=== PATIENT | female | born 1960 | race African-American/Black ===

== ENCOUNTER 2021-11-12 10:51 | Observation (INO) ==
[2021-11-12 11:00] VITALS: BMI 37.8
--- NOTE | 2021-11-12 11:17 | DR.CP ---
HPI Time Seen Time Seen by Provider: 11/12/21 11:17 PCP Primary Care Physician: SEAN HPI Comment HPI Comment: PATIENT IS 61YR OLD FEMALE IN ER WITH THROAT PAIN SINCE THURSDAY AND CHEST PAIN SINCE YESTERDAY. DENIES FEVER, COUGH OR CONGESTION. NO NAUSEA, VOMITING, DIARRHEA OR DYSURIA. PAIN IN THE CHEST IS SHARP, 8/10 RADIATING TO BACK. HISTORY CHF, ARTHRITIS AND HTN. DENIES TRAUMA. Complaint Chief Complaint Doctor Comments: CHEST PAIN SINCE YESTER AND THROAT PAIN SINCE THURSDAY. Chief Complaint:: PT STATES SHE IS HAVING PAIN UP IN HER THROAT DOWN INTO HER MID CHEST. PATIENT STATES SHE THOUGHT MAYBE HER THROAT WAS STARTING TO HURT THURSDAY, BUT THE CHEST PAIN STARTED YESTERDAY INTERMITTENT WITH SHARP INTENSITY. TODAY PATIENT STATES THE PAIN IS CONATANT WITH A SOMETIMES SHARP PAIN COVID-19 Coronavirus risk:travel/contact w/high risk person: No Has patient experienced Coronavirus symptoms: No Reviewed Nurses Notes Review: Yes Source History Provided: Patient Mode of Arrival Mode of Arrival: Ambulatory Timing Onset of Chief Complaint: 11/10/21 Came on: Suddenly Duration Duration: Constant Duration: Hours Location Location of Chest Pain: Chest (SUBSTERNAL) Chest Pain Radiation Location: Back Context Onset: At rest Cardiac Risk Factors: HTN PE Risk Factors: None History of: None Prehospital Care: None Quality Quality: Burning Severity Severity: Moderate Modifying Factors Worsens: Exertion Impoves: Rest Associated Signs and Symptoms Associated Signs and Symptoms: Shortness of Breath Other History Other History: HTN, CHF. PULM HTN PMH PMH Past Medical History: Yes Past Medical History: Arthritis, CHF and Hypertension Past Medical History Comment: PULMONARY HYPERTENSION Past Surgical History: Yes Surgical History: Family History History of Family Medical Conditions: Yes Family Medical History: Hypertension Social History Does any household member use tobacco: No Alcohol Use: None Do you use any recreational Drugs:: No Lives With: Family Lives Where: Home Travel Risk Coronavirus risk:travel/contact w/high risk person: No Has patient experienced Coronavirus symptoms: No Infectious screening In the last 2 months have you had wt loss of >10#?: NO Have you had fever, night sweats or hemotysis?: No Have you traveled outside the country in the last 6 months?: No Isolation: Standard ROS Review of Systems Constitutional: See HPI, Weakness and Fatigue; negative Fever Eyes: No Symptoms Reported and See HPI; negative Blurred Vision and Diplopia ENTM: No Symptoms Reported and See HPI; negative Nose Discharge and Nose Congestion Respiratoy: See HPI and Short of Breath; negative Moist Cough and Wheezing Cardiovascular: See HPI and Chest Pain Gastrointestinal/Abdominal: No Symptoms Reported and See HPI; negative Abdominal Pain, Diarrhea, Nausea and Vomiting Genitourinary: No Symptoms Reported and See HPI; negative Dysuria Neurological: See HPI and Weakness; negative Headache and Dizziness Musculoskeletal: No Symptoms Reported and See HPI; negative Back Pain Integumentary: No Symptoms Reported and See HPI; negative Rash and Juandice Hematologic/Lymphatic: No Symptoms Reported and See HPI; negative Easy Bruising Endocrine: No Symptoms Reported and See HPI; negative Increased Thirst and Increased Urine Psychiatric: No Symptoms Reported and See HPI All Other Systems: Reviewed and Negative PE Vitals Vitals: Temperature 98.0 F Pulse Rate 59 Respiratory Rate 13 Blood Pressure [Left Arm] 129/81 Blood Pressure 91/55 O2 Sat by Pulse Oximetry 94 General Limitations: No Limitations General Appearance: Alert and In No Apparent Distress Head Head Exam: Normal Inspection, Atraumatic and Normocephalic Eyes Eye exam: Normal Appearance and PERRL; negative Scleral Icterus and Conjunctival Injection ENT ENT Exam: Normal Exam, Normal Oropharynx, Normal External Ear Exam and TM's Normal Bilaterally Chest Chest Inspection: Normal Inspection and Symmetric Chest Wall Rise; negative Tenderness Respiratory Respiratory Exam: Normal Lung Sounds Bilat; negative Accessory Muscle Use, Chest Wall Tenderness and Respiratory Distress Respiratory Exam: Bilateral: Rhonchi and Lower: Rhonchi Cardiovascular Cardiovascular Exam: Regular Rate, Normal Rhythm and Normal Heart Sounds; negative Systolic Murmur and Diastolic Murmur Pulse: Normal and Radial Edema: Normal and 1 Abdominal Exam Abdominal Exam: Normal Inspection, Normal Bowel Sounds and Soft; negative Tenderness Extremities Extremities Exam: Normal Inspection and Normal Capillary Refill Back Back Exam: Normal Inspection; negative (R) CVA Tenderness and (L) CVA Tenderness Neurologic Neurological Exam: Alert and Oriented X3; negative Motor Sensory Deficit Psychiatric Psychiatric Exam: Normal Affect and Normal Mood Skin Skin Exam: Warm, Dry, Intact and Normal Color MDM Additional Information Additional Information Obtained From: Old Records and Family Differential Diagnosis Differential Diagnosis: Angina, Chest Wall Pain, CHF, Costochondritis, Gastritis, Myocardial Infarction, Pericarditis, Pneumonia and Pneumothorax COURSE Treatment Treatment: SEE ORDERS NOTED WHILE IN ER. LABS, XRAY, CT REPORTS DISCUSSED WITH PATIENT AND HER WHILE SHE WAS IN ER. SHE WAS GIVEN ASA 81MG CHEWABLE TABS, 4TABS PO, MORPHIN 4MG IV, ZOFRAN 4MG IV AND NS 30CC/HR WHILE IN ER. SHE STILL CONTINUE HAVING PAIN. SHE WAS ADMITTED TO HOSPITAL FOR FURTHER MANAGEMENT. Consultation Consultation Comments: DISCUSSED PATIENT WITH DR. ESTRADA. HE ADMITTED PATIENT. Education/Counseling Education/Counseling: Patient Educated On: Diagnosis ROR Labs Reviewed Laboratory Results Reviewed?: Yes Result Diagrams: 11/14/21 05:13 11/14/21 05:13 Laboratory: WBC 6.7 X10^3/uL (3.6-10.0) 11/12/21 11:00 RBC 4.51 X10^6/uL (3.5-5.4) 11/12/21 11:00 Hgb 12.8 g/dL (12.0-16.0) 11/12/21 11:00 Hct 37.9 % (36.0-47.0) 11/12/21 11:00 MCV 84.1 fL (80.0-100.0) 11/12/21 11:00 MCH 28.4 pg (27.0-34.0) 11/12/21 11:00 MCHC 33.7 g/dL (33.0-35.0) 11/12/21 11:00 RDW 15.9 % (11.6-16.5) 11/12/21 11:00 Plt Count 292 X10^3/uL (150.0-450.0) 11/12/21 11:00 MPV 8.6 fL (7.4-11.0) 11/12/21 11:00 Neut % (Auto) 54.1 % (42.0-75.0) 11/12/21 11:00 Lymph % (Auto) 33.2 % (21.0-51.0) 11/12/21 11:00 [place] % (Auto) 8.3 % (0.0-13.0) 11/12/21 11:00 Eos % (Auto) 3.7 % (0.9-2.9) H 11/12/21 11:00 Baso % (Auto) 0.7 % (0.2-1.0) 11/12/21 11:00 Neut # (Auto) 3.6 x10^3/uL (2.2-4.8) 11/12/21 11:00 Lymph # (Auto) 2.2 X10^3/uL (1.3-2.9) 11/12/21 11:00 [place] # (Auto) 0.6 x10^3/uL (0.3-0.8) 11/12/21 11:00 Eos # (Auto) 0.2 x10^3/uL (0.0-0.2) 11/12/21 11:00 Baso # (Auto) 0.0 X10^3/uL (0.0-0.1) 11/12/21 11:00 Absolute Nucleated RBC 0.2 /100WBC 11/12/21 11:00 PT 13.0 SECONDS (11.8-14.3) 11/12/21 11:00 INR Target Range - 11/12/21 11:00 INR 1.03 (0.8-1.3) 11/12/21 11:00 APTT 29.7 SECONDS (22.9-36.5) 11/12/21 11:00 PTT Comment - 11/12/21 11:00 D-Dimer 0.71 ug/ml (0.0-0.57) H* 11/12/21 11:16 Sodium 143 mmol/L (136-145) 11/12/21 11:00 Corrected Sodium TNP 11/12/21 11:00 Potassium 3.8 mmol/L (3.5-5.1) 11/12/21 11:00 Chloride 108 mmol/L (98-107) H 11/12/21 11:00 Carbon Dioxide 27.4 mmol/L (21-32) 11/12/21 11:00 BUN 6 mg/dL (7-18) L 11/12/21 11:00 Creatinine 0.75 mg/dL (0.55-1.02) 11/12/21 11:00 Est GFR (MDRD) Af Amer > 60 (>60) 11/12/21 11:00 Est GFR (MDRD) Non-Af > 60 (>60) 11/12/21 11:00 Glucose 91 mg/dL (65-99) 11/12/21 11:00 Calcium 8.4 mg/dL (8.5-10.1) L 11/12/21 11:00 Corrected Calcium TNP 11/12/21 11:00 Magnesium 2.2 mg/dL (1.7-2.9) 11/12/21 11:00 Total Bilirubin 0.40 mg/dL (0.2-1.0) 11/12/21 11:00 AST 12 Units/L (15-37) L 11/12/21 11:00 ALT 15 Units/L (12-78) 11/12/21 11:00 Alkaline Phosphatase 115 Units/L (46-116) 11/12/21 11:00 Creatine Kinase 69 Units/L (26-192) 11/12/21 11:00 CK-MB (CK-2) < 1.0 ng/mL (0-4.0) 11/12/21 11:00 CK/CKMB % Calc 1.5 % (<4) 11/12/21 11:00 Troponin I High Sens 8.1 ng/L (4.0-60.0) 11/12/21 11:00 B-Natriuretic Peptide 22.1 pg/mL (0-79) 11/12/21 11:00 Total Protein 7.4 g/dL (6.4-8.2) 11/12/21 11:00 Albumin 3.4 g/dL (3.4-5.0) 11/12/21 11:00 Globulin 4.0 g/dL (2.5-4.5) 11/12/21 11:00 Albumin/Globulin Ratio 0.9 Ratio (1.1-2.1) L 11/12/21 11:00 SARS CoV-2 RNA Rapid HERON Negative (NEGATIVE) 11/12/21 16:06 XRAY XRAY Interpreted by: Radiologist (REPORTS NOTED.) and Self EKG Rate: 56 [place]: Normal Rhythm: SB Block: None Hypertrophy: None ST: Normal Opioid Opioid Risk Tool Age (Jose box if 16-45): No History of Preadolescent Sexual Abuse: No Total: 0 Total Score Risk Category: Low Risk Copyright: Ledesma LR predicting aberrant behaviors Diagnosis Discharge Problem: Chest pain, rule out acute myocardial infarction Instructions Instructions: Nonspecific Chest Pain Nonspecific Chest Pain, Adult, Mhoy-da-Twny Chest Wall Pain, [id number] Chest Wall Pain Forms: Excuse From Work or School Precautions for COVID19 [facility] Social Distancing
[2021-11-12 11:21] LABS: BASOPHILS % (AUTO) 0.7 % (0.2-1.0); EOSINOPHILS # (AUTO) 0.2 x10^3/uL (0.0-0.2); EOSINOPHILS % (AUTO) 3.7 % (0.9-2.9); HEMATOCRIT 37.9 % (36.0-47.0); HEMOGLOBIN 12.8 g/dL (12.0-16.0); LYMPHOCYTES # (AUTO) 2.2 X10^3/uL (1.3-2.9); LYMPHOCYTES % (AUTO) 33.2 % (21.0-51.0); MEAN CORPUSCULAR HEMOGLOBIN 28.4 pg (27.0-34.0); MEAN CORPUSCULAR HGB CONC 33.7 g/dL (33.0-35.0); MEAN CORPUSCULAR VOLUME 84.1 fL (80.0-100.0); MEAN PLATELET VOLUME 8.6 fL (7.4-11.0); MONOCYTES # (AUTO) 0.6 x10^3/uL (0.3-0.8); MONOCYTES % (AUTO) 8.3 % (0.0-13.0); NEUTROPHILS # (AUTO) 3.6 x10^3/uL (2.2-4.8); NEUTROPHILS % (AUTO) 54.1 % (42.0-75.0); RED BLOOD COUNT 4.51 X10^6/uL (3.5-5.4); RED CELL DISTRIBUTION WIDTH 15.9 % (11.6-16.5); WHITE BLOOD COUNT 6.7 X10^3/uL (3.6-10.0)
[2021-11-12] MEDS ORDERED: MORPHINE SULFATE INJ 4 MG IVP ONE (11:37)
[2021-11-12] MEDS ORDERED: ZOFRAN INJ 4 MG VIAL IVP ONE (11:37)
[2021-11-12] MEDS ORDERED: ASPIRIN 81 MG CHEWTAB PO ONE (11:37)
[2021-11-12 11:53] LABS: ALANINE AMINOTRANSFERASE 15 Units/L (12-78); ALBUMIN 3.4 g/dL (3.4-5.0); ALKALINE PHOSPHATASE 115 Units/L (46-116); ASPARTATE AMINO TRANSFERASE 12 Units/L (15-37); BLOOD UREA NITROGEN 6 mg/dL (7-18); CALCIUM 8.4 mg/dL (8.5-10.1); CARBON DIOXIDE 27.4 mmol/L (21-32); CHLORIDE 108 mmol/L (98-107); CKMB % 1.5 % (<4); CREATINE KINASE 69 Units/L (26-192); CREATINE KINASE MB < 1.0 ng/mL (0-4.0); CREATININE 0.75 mg/dL (0.55-1.02); MAGNESIUM 2.2 mg/dL (1.7-2.9); SODIUM 143 mmol/L (136-145); TOTAL PROTEIN 7.4 g/dL (6.4-8.2); eGFR NON BLACK RACES > 60 (>60)
[2021-11-12] MEDS ORDERED: ASPIRIN 81 MG CHEWTAB ONE (12:01)
[2021-11-12] MEDS ORDERED: MORPHINE SULFATE INJ 4 MG ONE ×2 (12:02→16:01)
[2021-11-12] MEDS ORDERED: ZOFRAN INJ 4 MG VIAL ONE (12:02)
--- NOTE | 2021-11-12 12:38 | RAD ---
HISTORYCHEST PAIN CHF, HTN, C-SECSTUDYCHEST, 1 VIEWCOMPARISONChest x-ray dated October 14, 2019.FINDINGSThe trachea is midline. The cardiac silhouette is unchanged. The lungs are clear without focal infiltrate, pneumothorax, or effusion. The bony thorax is unremarkable.IMPRESSIONNo acute cardiopulmonary findings .Electronically signed by: ESTEBAN PENA (Nov 12, 2021 12:36:48)
--- NOTE | 2021-11-12 15:39 | CT ---
HISTORYCHEST PAIN, ELEVATED DDIMERSTUDYCTA CHESTCOMPARISONTECHNIQUEMultiple axial images of the chest were obtained from the thoracic inlet to the upper abdomen after the administration of IV contrast. 3D reconstructions utilizing axial MIPS imaging was performed and reviewed. Dose reduction techniques including Automated Exposure Control (AEC) and adjustment of mA and kV were utilized.FINDINGSThere are reactive sized lymph nodes in the left axilla. Thyroid gland is normal. The heart size is normal. Main pulmonary trunk is of normal diameter. There is no filling defect in the pulmonary arteries to suggest pulmonary embolus. There is no pathologic adenopathy. There is some esophageal wall thickening suggesting reflux esophagitis. There is bronchial wall thickening. There is prominence of the interstitial markings; etiology is uncertain. Differential includes pulmonary edema atypical infection such as viral pneumonia. There is mild dependent basilar atelectasis. There is no pleural effusion. Upper abdominal structures are grossly unremarkable. S-shaped scoliosis in the thoracolumbar spine.IMPRESSION1. Negative for pulmonary embolus. 2. Abnormal interstitial prominence. Question interstitial lung disease, edema, or atypical or viral infection.Electronically signed by: Dread Christopher (Nov 12, 2021 15:37:51)
[2021-11-12] MEDS: MORPHINE SULFATE INJ 4 MG IVP ONE ×2 (17:10→18:00)
[2021-11-12] MEDS ORDERED: NS 1,000 ML IV 1,000 ML ONE (17:12)
[2021-11-12] MEDS: NS 1,000 ML IV 1,000 ML IV SCH (17:25)
[2021-11-12] MEDS ORDERED: AMBIEN PO PRN (23:09)
[2021-11-12 23:51] LABS: CKMB % 1.3 % (<4); CREATINE KINASE 75 Units/L (26-192); CREATINE KINASE MB < 1.0 ng/mL (0-4.0)
[2021-11-13 05:30] LABS: BASOPHILS % (AUTO) 0.3 % (0.2-1.0); EOSINOPHILS # (AUTO) 0.3 x10^3/uL (0.0-0.2); EOSINOPHILS % (AUTO) 4.3 % (0.9-2.9); HEMOGLOBIN 12.2 g/dL (12.0-16.0); LYMPHOCYTES # (AUTO) 2.1 X10^3/uL (1.3-2.9); LYMPHOCYTES % (AUTO) 28.1 % (21.0-51.0); MEAN CORPUSCULAR HEMOGLOBIN 28.2 pg (27.0-34.0); MEAN CORPUSCULAR VOLUME 82.9 fL (80.0-100.0); MEAN PLATELET VOLUME 8.9 fL (7.4-11.0); MONOCYTES # (AUTO) 0.7 x10^3/uL (0.3-0.8); MONOCYTES % (AUTO) 8.9 % (0.0-13.0); NEUTROPHILS # (AUTO) 4.4 x10^3/uL (2.2-4.8); NEUTROPHILS % (AUTO) 58.4 % (42.0-75.0); RED BLOOD COUNT 4.35 X10^6/uL (3.5-5.4); RED CELL DISTRIBUTION WIDTH 15.9 % (11.6-16.5); WHITE BLOOD COUNT 7.6 X10^3/uL (3.6-10.0)
[2021-11-13 06:02] LABS: ALANINE AMINOTRANSFERASE 14 Units/L (12-78); ALBUMIN 3.2 g/dL (3.4-5.0); ALKALINE PHOSPHATASE 116 Units/L (46-116); ASPARTATE AMINO TRANSFERASE 11 Units/L (15-37); BLOOD UREA NITROGEN 9 mg/dL (7-18); CARBON DIOXIDE 25.9 mmol/L (21-32); CHLORIDE 107 mmol/L (98-107); CKMB % 1.4 % (<4); COR CA(FOR HYPOALB) 8.6 mg/dL (8.5-10.1); CREATINE KINASE 72 Units/L (26-192); CREATINE KINASE MB < 1.0 ng/mL (0-4.0); CREATININE 0.76 mg/dL (0.55-1.02); MAGNESIUM 2.1 mg/dL (1.7-2.9); SODIUM 140 mmol/L (136-145); eGFR NON BLACK RACES > 60 (>60)
--- NOTE | 2021-11-13 10:04 | DR.H&P ---
H&P - History & Physical for Day of: H&P Date: 11/12/21 - Chief Complaint Chief Complaint: CHEST PAIN, THROAT PAIN, EPIGASTRIC PAIN, SHORTNESS OF BREATH - History of Present Illness History of Present Illness: IS A 61 YEAR OLD PATIENT OF OURS. SHE PRESENTED TO THE ER WITH COMPLAINTS OF SUBSTERNAL CHEST PAIN WITH RADIATION TO THE BACK. THERE IS ASSOCIATED PAIN TO THE THROAT, EPIGASTRIC AREA, AND SHORTNESS OF BREATH. SHE DESCRIBES THROAT PAIN BURNING. PATIENT REPORTED THAT SYMPTOMS STARTED ON DAY PRIOR. SHE DESCRIBES PAIN INTERMITTENT, SHARP AND RATED IT A 6/10 WHEN PAIN IS PRESENT. SHE HAS A PMH OF HTN, PULMONARY HTN, CHF. ON ARRIVAL, HER VITALS WERE 98.0-70-16-97%-115/60. LABS WERE OBTAINED. WBC 6.7, RBC 4.51, HGB 12.8, HCT 37.9, D-DIMER 0.71, SODIUM 143, POTASSIUM 3.8, CHLORIDE 108, BUN 6, CREATININE 0.75, GLUCOSE 91, CALCIUM 8.4, AST 12, ALT 15, ALK PHOS 115, CREATININE 69, BNP 22.1, TOTAL PROTEIN 7.4, ALBUMIN 3.4. CARDIAC ENZYMES WERE WITHIN NORMAL LIMITS. COVID-19 NEGATIVE. AN EKG WAS OBTAINED AND REVEALED: SINUS RHYTHM WITH HR 63. CHEST XRAY OBTAINED AND REVEALED: NO ACUTE CARDIOPULMONARY FINDINGS. A CHEST CTA WAS OBTAINED AND REVEALED: There are reactive sized lymph nodes in the left axilla. Thyroid gland is normal. The heart size is normal. Main pulmonary trunk is of normal diameter. There is no filling defect in the pulmonary arteries to suggest pulmonary embolus. There is no pathologic adenopa thy. There is some esophageal wall thickening suggesting reflux esophagitis. There is bronchial wall thickening. There is prominence of the interstitial markings; etiology is uncertain. Differential includes pulmonary edema atypical infection such as viral pneumonia. There is mild dependent basilar atelectasis. There is no pleural effusion. Upper abdominal structures are grossly unremarkable. S-shaped scoliosis in the thoracolumbar spine. IN THE ER, HE WAS GIVEN MORPHINE 4MG IV X 1, ZOFRAN 4MG IV X 1, ASPIRIN 324 MG PO X 1. SHE REPORTED SLIGHT IMPROVEMENT CHEST PAIN. SHE WAS ADMITTED TO THE HOSPTIAL FOR FURTHER EVALUATION AND TREATMENT OF CHEST PAIN RULE OUT ACUTE OK, ESOPHAGITIS, AND SHORTNESS OF BREATH. SHE WAS STARTED ON NORMAL SALINE AT KVO, ASPIRIN 325MG PO DAILY, PEPCID 20MG IV Q12H, PROTONIX 40MG IV BID, AND GI COCKTAIL 15ML PO QID. DESPITE HX OF HTN, HER BLOOD PRESSURE WAS RELATIVELY LOW WIHILE IN THE ER AND THROUGHOUT THE NIGHT. WE WILL REVIEW HER HOME MEDICATIONS AND RESUME APPROPRIATE. WHILE SHE IS HERE, WE WILL CONSULT FOR POSSIBLE ENDOSCOPY. WE WILL OBTAIN SERIAL CARDIAC ENZYMES AND EKGS. OTHERWISE, WE PLAN TO FOLLOW UP WITH AM LABS AND CONTINUE TO MONITOR. TIME SPENT ON CLINICAL ASSESSMENT, REVIEWING LABS AND IMAGING, DECISION MAKING, AND DOCUMENTATION GREATER THAN 75 MINUTES. - Past Medical History Past Medical History: Hypertension, Arthritis, CHF - Past Surgical History Surgical History: - Family History Family Medical History: Diabetes Mellitus, Cancer, [place], Coronary Artery Disease, Heart Failure, Hypertension - Social History Does patient currently use any type of tobacco product: No Have you used tobacco products in the last 12 months: No Type of Tobacco Use: None Does any household member use tobacco: No Alcohol Use: None Drug Use: None - Medications Home Medications: No Known Drug Allergies Allergy (Verified 10/14/19 13:31) CONTINUE taking the following medications furosemide 20 mg PO DAILY 11/12/21 [History] gabapentin 300 mg PO HS 11/12/21 [History] ibuprofen 800 mg PO TID 11/12/21 [History] levocetirizine 5 mg PO ONCE 11/12/21 [History] ondansetron 4 mg PO Q8H 11/12/21 [History] pantoprazole 40 mg PO DAILY 11/12/21 [History] riociguat [Adempas] 2.5 mg PO TID 11/12/21 [History] zolpidem 10 mg PO HS 11/12/21 [History] - Review of Systems Constitutional: See HPI Eyes: No Symptoms Reported ENT: Throat Pain Respiratory: Shortness of Breath. denies: Cough, Hemoptysis, Sputum Cardiovascular: Chest Pain, See HPI Gastrointestinal: Nausea, Abdominal Pain Genitourinary: No Symptoms Reported Musculoskeletal: No Symptoms Reported Skin: No Symptoms Reported Neurological: No Symptoms Reported - Physical Exam Vital Signs: Temperature 99.2 F Pulse Rate [Left Brachial] 60 Pulse Rate 59 Respiratory Rate 18 Blood Pressure [Left Arm] 102/50 Blood Pressure 91/55 O2 Sat by Pulse Oximetry 94 Oriented: Normal Eyes: Normal Ear: Normal Nose: Normal Throat: Normal Respiratory: Clear Throughout Cardiovascular: Normal : Normal Auscultation: Bowel Sounds: Normal Palpation: Normal Tenderness: Epigastric, Mild Skin: Normal Musculoskeletal: Normal Psychiatric: Normal Mood Description: Calm Affect: Normal Speech Pattern: Clear - Assessment/Plan (1) Chest pain, rule out acute myocardial infarction Status: Acute Plan: ADMIT, SERIAL CARDIAC ENZYMES AND EKG, CONSULT FOR POSSIBLE ENDOSCOPY, NORMAL SALINE AT KVO, ASPIRIN 325MG PO DAILY, PEPCID 20MG IV Q12H, PROTONIX 40MG IV BID, AND GI COCKTAIL 15ML PO QID. (2) Esophagitis Status: Acute (3) Shortness of breath Status: Acute - Allergies Allergies/Adverse Reactions: Allergies Allergy/AdvReac Type Severity Reaction Status Date / Time No Known Drug Allergies Allergy Verified 10/14/19 13:31
[2021-11-13] MEDS: PROTONIX INJ 40 MG VIAL IVP SCH ×2 (10:15→21:02)
[2021-11-13] MEDS: PEPCID 20 MG VIAL 20 MG in NS 50 ML IV 50 ML IV SCH ×2 (10:15→21:03)
[2021-11-13] MEDS: LEVSIN/MAALOX/LIDOC VISC PO SCH ×4 (12:08→21:01)
[2021-11-13] MEDS ORDERED: DIPRIVAN VIAL 20 ML ONE (13:21)
[2021-11-13] MEDS ORDERED: K-DUR TAB 20 MEQ PO PRN (13:33)
[2021-11-13] MEDS ORDERED: POTASSIUM CHLORIDE LIQ 20 MEQ UDC PO PRN (13:33)
[2021-11-13] MEDS ORDERED: MAGNESIUM SULFATE 1 GRAM/100 mL PREMIX 1 G/100 ML BAG IV PRN (13:33)
[2021-11-13] MEDS ORDERED: MICRO K EXTEN CAP 10 MEQ PO PRN (13:33)
[2021-11-13] MEDS ORDERED: POTASSIUM CHL 60 MEQ/NS 0.45% 500 ML IV PRN (13:33)
[2021-11-13] MEDS ORDERED: KLOR-CON PO PRN (13:33)
[2021-11-13] MEDS ORDERED: K-RIDER 10 MEQ/NS 100 ML 10 MEQ/100 ML BAG IV PRN (13:33)
[2021-11-13] MEDS ORDERED: POTASSIUM CHL 40 MEQ/NS 0.45% 500 ML IV PRN (13:33)
[2021-11-13 15:46] LABS: BILIRUBIN,URINE NEGATIVE (NEGATIVE); BLOOD/HEMOGLOBIN,URINE NEGATIVE (NEGATIVE); GLUCOSE, URINE NEGATIVE (NEGATIVE); KETONES,URINE NEGATIVE (NEGATIVE); LEUKOCYTE ESTERASE ,URINE NEGATIVE (NEGATIVE); NITRITES,URINE NEGATIVE (NEGATIVE); PROTEIN,URINE NEGATIVE (NEGATIVE); UROBILINOGEN,URINE NORMAL (NORMAL)
[2021-11-13 15:48] LABS: APPEARANCE,URINE CLEAR (CLEAR); COLOR,URINE PALE YELLOW (YELLOW)
[2021-11-13] MEDS: NS 1,000 ML IV 1,000 ML IV SCH ×2 (16:15→20:10)
[2021-11-13] MEDS: CARAFATE PO SCH ×2 (16:45→21:03)
[2021-11-14] MEDS: CARAFATE PO SCH (05:58)
[2021-11-14 06:21] LABS: BASOPHILS % (AUTO) 0.5 % (0.2-1.0); EOSINOPHILS # (AUTO) 0.3 x10^3/uL (0.0-0.2); EOSINOPHILS % (AUTO) 4.4 % (0.9-2.9); HEMATOCRIT 36.5 % (36.0-47.0); HEMOGLOBIN 12.3 g/dL (12.0-16.0); LYMPHOCYTES # (AUTO) 2.1 X10^3/uL (1.3-2.9); LYMPHOCYTES % (AUTO) 32.8 % (21.0-51.0); MEAN CORPUSCULAR HEMOGLOBIN 28.2 pg (27.0-34.0); MEAN CORPUSCULAR HGB CONC 33.7 g/dL (33.0-35.0); MEAN CORPUSCULAR VOLUME 83.6 fL (80.0-100.0); MEAN PLATELET VOLUME 9.4 fL (7.4-11.0); MONOCYTES # (AUTO) 0.6 x10^3/uL (0.3-0.8); MONOCYTES % (AUTO) 9.5 % (0.0-13.0); NEUTROPHILS # (AUTO) 3.4 x10^3/uL (2.2-4.8); NEUTROPHILS % (AUTO) 52.8 % (42.0-75.0); RED BLOOD COUNT 4.36 X10^6/uL (3.5-5.4); RED CELL DISTRIBUTION WIDTH 15.6 % (11.6-16.5); WHITE BLOOD COUNT 6.5 X10^3/uL (3.6-10.0)
[2021-11-14 06:25] LABS: ALANINE AMINOTRANSFERASE 15 Units/L (12-78); ALBUMIN 3.2 g/dL (3.4-5.0); ALKALINE PHOSPHATASE 114 Units/L (46-116); ASPARTATE AMINO TRANSFERASE 12 Units/L (15-37); BLOOD UREA NITROGEN 6 mg/dL (7-18); CALCIUM 8.2 mg/dL (8.5-10.1); CARBON DIOXIDE 26.9 mmol/L (21-32); CHLORIDE 108 mmol/L (98-107); COR CA(FOR HYPOALB) 8.8 mg/dL (8.5-10.1); CREATININE 0.64 mg/dL (0.55-1.02); SODIUM 142 mmol/L (136-145); eGFR NON BLACK RACES > 60 (>60)
[2021-11-14 08:54] VITALS: BP 104/58
[2021-11-14] MEDS: LEVSIN/MAALOX/LIDOC VISC PO SCH (10:04)
[2021-11-14] MEDS: PEPCID 20 MG VIAL 20 MG in NS 50 ML IV 50 ML IV SCH (10:05)
[2021-11-14] MEDS: PROTONIX INJ 40 MG VIAL IVP SCH (10:06)
[2021-11-14] MEDS: NS 1,000 ML IV 1,000 ML IV SCH (10:08)
== END 2021-11-14 11:30 | disposition home or self-care (01) ==
LOC: MED/SURG 10:51 → ER 10:51 → MED/SURG 17:10
PROVIDERS: ADMIT Internal Medicine; ATTEND Internal Medicine

== ENCOUNTER 2023-01-29 14:41 | Observation (INO) ==
[2023-01-29 16:56] VITALS: BMI 35.0
[2023-01-29 17:44] LABS: BASOPHILS # (AUTO) 0.1 X10^3/uL (0.0-0.1); EOSINOPHILS # (AUTO) 0.1 x10^3/uL (0.0-0.2); EOSINOPHILS % (AUTO) 1.8 % (0.9-2.9); HEMATOCRIT 39.1 % (36.0-47.0); HEMOGLOBIN 12.9 g/dL (12.0-16.0); LYMPHOCYTES # (AUTO) 2.8 X10^3/uL (1.3-2.9); MEAN CORPUSCULAR HEMOGLOBIN 27.7 pg (27.0-34.0); MEAN CORPUSCULAR HGB CONC 32.9 g/dL (33.0-35.0); MEAN CORPUSCULAR VOLUME 84.3 fL (80.0-100.0); MEAN PLATELET VOLUME 8.6 fL (7.4-11.0); MONOCYTES # (AUTO) 0.6 x10^3/uL (0.3-0.8); MONOCYTES % (AUTO) 7.6 % (0.0-13.0); NEUTROPHILS % (AUTO) 52.6 % (42.0-75.0); PLATELET COUNT 298 X10^3/uL (150.0-450.0); RED BLOOD COUNT 4.64 X10^6/uL (3.5-5.4); RED CELL DISTRIBUTION WIDTH 15.9 % (11.6-16.5); WHITE BLOOD COUNT 7.5 X10^3/uL (3.6-10.0)
--- NOTE | 2023-01-29 17:47 | EKG ---
Test Reason : SOB Blood Pressure : */* mmHG Vent. Rate : 70 BPM Atrial Rate : 70 BPM P-R Int : 174 ms QRS Dur : 82 ms QT Int : 418 ms P-R-T Axes : 7 -18 43 degrees QTc Int : 451 ms Normal sinus rhythm Normal ECG When compared with ECG of 22-SEP-2022 15:50, Criteria for Septal infarct are no longer present Confirmed by Artur Martinez ([id number]) on 01/30/2023 7:44:46 AM Referred By: Confirmed By: Artur Martinez
[2023-01-29 17:55] LABS: ALANINE AMINOTRANSFERASE 18 Units/L (12-78); ALBUMIN 3.7 g/dL (3.4-5.0); ALKALINE PHOSPHATASE 110 Units/L (46-116); ASPARTATE AMINO TRANSFERASE 12 Units/L (15-37); BLOOD UREA NITROGEN 11 mg/dL (7-18); CALCIUM 8.9 mg/dL (8.5-10.1); CARBON DIOXIDE 30.3 mmol/L (21-32); CHLORIDE 104 mmol/L (98-107); CREATINE KINASE 92 Units/L (26-192); CREATININE 0.85 mg/dL (0.55-1.02); GLUCOSE 102 mg/dL (65-99); POTASSIUM 3.7 mmol/L (3.5-5.1); SODIUM 143 mmol/L (136-145); TOTAL PROTEIN 7.7 g/dL (6.4-8.2); eGFR NON BLACK RACES > 60 (>60)
[2023-01-29] MEDS: NS 1,000 ML IV 1,000 ML IV SCH (18:12)
--- NOTE | 2023-01-29 20:25 | EKG ---
Test Reason : SOB Blood Pressure : */* mmHG Vent. Rate : 69 BPM Atrial Rate : 69 BPM P-R Int : 166 ms QRS Dur : 78 ms QT Int : 408 ms P-R-T Axes : 2 -10 28 degrees QTc Int : 437 ms Normal sinus rhythm Low voltage QRS Borderline ECG When compared with ECG of 29-JAN-2023 17:40, (Unconfirmed) No significant change was found Confirmed by Artur Martinez ([id number]) on 01/30/2023 7:44:13 AM Referred By: Confirmed By: Artur Martinez
[2023-01-29 20:40] LABS: BILIRUBIN,URINE NEGATIVE (NEGATIVE); BLOOD/HEMOGLOBIN,URINE NEGATIVE (NEGATIVE); GLUCOSE, URINE NEGATIVE (NEGATIVE); KETONES,URINE NEGATIVE (NEGATIVE); LEUKOCYTE ESTERASE ,URINE NEGATIVE (NEGATIVE); NITRITES,URINE NEGATIVE (NEGATIVE); PROTEIN,URINE NEGATIVE (NEGATIVE); UROBILINOGEN,URINE 1+ (NORMAL)
[2023-01-29 20:42] LABS: APPEARANCE,URINE CLEAR (CLEAR); COLOR,URINE YELLOW (YELLOW)
[2023-01-29 20:43] LABS: BACTERIA,URINE 1+ /HPF (NEGATIVE); RBC,URINE 0-2 /HPF (0-3); SQUAMOUS EPITHELIAL CELL,UR FEW /HPF (NEGATIVE)
[2023-01-29] MEDS: MORPHINE SULFATE INJ 2 MG INJ IVP PRN (20:55)
--- NOTE | 2023-01-30 01:10 | EKG ---
Test Reason : SOB Blood Pressure : */* mmHG Vent. Rate : 62 BPM Atrial Rate : 62 BPM P-R Int : 184 ms QRS Dur : 78 ms QT Int : 436 ms P-R-T Axes : 21 -5 34 degrees QTc Int : 442 ms Normal sinus rhythm Low voltage QRS Borderline ECG When compared with ECG of 29-JAN-2023 20:18, (Unconfirmed) No significant change was found Confirmed by Artur Martinez (4) on 01/30/2023 7:44:08 AM Referred By: Confirmed By: Artur Martinez
--- NOTE | 2023-01-30 01:21 | RAD ---
HISTORY"MY BLOOD PRESSURE HAS BEEN LOW. MY HEAD HAS BEEN HURTING AND I HAVE BEEN HAVING A LITTLE BIT OF CHEST PAIN."STUDYCHEST, 1 VIEWCOMPARISONJanuary 2022TECHNIQUEChest radiographic imaging, AP portable projection, 1 imageFINDINGSNo cardiomegaly.No focal airspace disease.No pleural effusion.No pneumothorax.No acute osseous abnormality.IMPRESSIONNo imaging findings of acute cardiopulmonary disease or significant changes.Electronically signed by: Bryson Majano (January 30, 2023 01:13:42)
[2023-01-30 06:03] LABS: BASOPHILS # (AUTO) 0.1 X10^3/uL (0.0-0.1); BASOPHILS % (AUTO) 0.8 % (0.2-1.0); EOSINOPHILS # (AUTO) 0.2 x10^3/uL (0.0-0.2); EOSINOPHILS % (AUTO) 2.9 % (0.9-2.9); HEMATOCRIT 35.6 % (36.0-47.0); LYMPHOCYTES # (AUTO) 3.1 X10^3/uL (1.3-2.9); LYMPHOCYTES % (AUTO) 44.4 % (21.0-51.0); MEAN CORPUSCULAR HEMOGLOBIN 28.5 pg (27.0-34.0); MEAN CORPUSCULAR HGB CONC 33.8 g/dL (33.0-35.0); MEAN CORPUSCULAR VOLUME 84.3 fL (80.0-100.0); MONOCYTES # (AUTO) 0.6 x10^3/uL (0.3-0.8); MONOCYTES % (AUTO) 8.2 % (0.0-13.0); NEUTROPHILS # (AUTO) 3.1 x10^3/uL (2.2-4.8); NEUTROPHILS % (AUTO) 43.7 % (42.0-75.0); PLATELET COUNT 265 X10^3/uL (150.0-450.0); RED BLOOD COUNT 4.23 X10^6/uL (3.5-5.4); RED CELL DISTRIBUTION WIDTH 15.8 % (11.6-16.5)
[2023-01-30] MEDS: NS 1,000 ML IV 1,000 ML IV SCH (06:07)
[2023-01-30 06:17] LABS: ALANINE AMINOTRANSFERASE 15 Units/L (12-78); ALBUMIN 3.3 g/dL (3.4-5.0); ALKALINE PHOSPHATASE 98 Units/L (46-116); ASPARTATE AMINO TRANSFERASE 11 Units/L (15-37); BLOOD UREA NITROGEN 11 mg/dL (7-18); CALCIUM 8.3 mg/dL (8.5-10.1); CARBON DIOXIDE 27.9 mmol/L (21-32); CHLORIDE 107 mmol/L (98-107); COR CA(FOR HYPOALB) 8.9 mg/dL (8.5-10.1); CREATININE 0.79 mg/dL (0.55-1.02); GLUCOSE 97 mg/dL (65-99); POTASSIUM 3.6 mmol/L (3.5-5.1); SODIUM 143 mmol/L (136-145); TOTAL PROTEIN 6.9 g/dL (6.4-8.2); eGFR NON BLACK RACES > 60 (>60)
[2023-01-30] MEDS: MORPHINE SULFATE INJ 2 MG INJ IVP PRN (09:26)
[2023-01-30 09:33] VITALS: BP 114/61; PULSE 63; TEMP 98.1; O2SAT 95
[2023-01-30] MEDS ORDERED: MOBIC TAB 15 MG PO PRN (09:59)
[2023-01-30] MEDS ORDERED: VITAMIN D3 125 mcg (5,000 UNITS) PO SCH (10:00)
[2023-01-30] MEDS ORDERED: ZYLOPRIM PO SCH (10:00)
[2023-01-30] MEDS ORDERED: PROTONIX TAB 40 MG PO SCH (10:00)
[2023-01-30] MEDS ORDERED: RIOCIGUAT 2.5 MG PO SCH (10:00)
[2023-01-30] MEDS ORDERED: SELEXIPAG 800 MCG PO SCH (10:00)
[2023-01-30] MEDS ORDERED: MACITENTAN 10 MG PO SCH (10:00)
[2023-01-30] MEDS ORDERED: K-DUR TAB 20 MEQ PO SCH (10:00)
[2023-01-30] MEDS ORDERED: CLARITIN PO SCH (10:00)
[2023-01-30] MEDS ORDERED: BENADRYL INJ 50 MG VIAL IVP ONE (11:39)
[2023-01-30] MEDS ORDERED: NEURONTIN CAP 300 MG PO SCH (21:00)
== END 2023-01-30 12:05 | disposition home or self-care (01) ==
LOC: MED/SURG
PROVIDERS: ADMIT Internal Medicine; ATTEND Internal Medicine
DX: Y92.238 Other place in hospital as the place of occurrence of the external cause; R06.02 Shortness of breath; T40.2X5A Adverse effect of other opioids, initial encounter; R07.89 Other chest pain; R51.9 Headache, unspecified

== ENCOUNTER 2023-02-06 10:38 | Observation (INO) ==
[2023-02-06 14:44] LABS: BASOPHILS % (AUTO) 0.5 % (0.2-1.0); EOSINOPHILS # (AUTO) 0.2 x10^3/uL (0.0-0.2); EOSINOPHILS % (AUTO) 2.2 % (0.9-2.9); HEMATOCRIT 39.5 % (36.0-47.0); HEMOGLOBIN 13.1 g/dL (12.0-16.0); LYMPHOCYTES # (AUTO) 2.8 X10^3/uL (1.3-2.9); LYMPHOCYTES % (AUTO) 37.1 % (21.0-51.0); MEAN CORPUSCULAR HEMOGLOBIN 28.1 pg (27.0-34.0); MEAN CORPUSCULAR HGB CONC 33.1 g/dL (33.0-35.0); MEAN CORPUSCULAR VOLUME 84.7 fL (80.0-100.0); MONOCYTES # (AUTO) 0.6 x10^3/uL (0.3-0.8); MONOCYTES % (AUTO) 7.6 % (0.0-13.0); NEUTROPHILS # (AUTO) 3.9 x10^3/uL (2.2-4.8); NEUTROPHILS % (AUTO) 52.6 % (42.0-75.0); PLATELET COUNT 281 X10^3/uL (150.0-450.0); RED BLOOD COUNT 4.66 X10^6/uL (3.5-5.4); RED CELL DISTRIBUTION WIDTH 15.7 % (11.6-16.5); WHITE BLOOD COUNT 7.4 X10^3/uL (3.6-10.0)
[2023-02-06 14:56] LABS: ALANINE AMINOTRANSFERASE 18 Units/L (12-78); ALBUMIN 3.7 g/dL (3.4-5.0); ALKALINE PHOSPHATASE 113 Units/L (46-116); ASPARTATE AMINO TRANSFERASE 15 Units/L (15-37); BLOOD UREA NITROGEN 9 mg/dL (7-18); CALCIUM 8.8 mg/dL (8.5-10.1); CARBON DIOXIDE 28.4 mmol/L (21-32); CHLORIDE 105 mmol/L (98-107); COR NA(FOR HYPERGLY) 143 mmol/L (136-145); CREATININE 0.79 mg/dL (0.55-1.02); GLUCOSE 135 mg/dL (65-99); POTASSIUM 3.8 mmol/L (3.5-5.1); SODIUM 142 mmol/L (136-145); TOTAL PROTEIN 7.8 g/dL (6.4-8.2); eGFR NON BLACK RACES > 60 (>60)
--- NOTE | 2023-02-06 15:02 | EKG ---
Test Reason : SOB Blood Pressure : */* mmHG Vent. Rate : 78 BPM Atrial Rate : 78 BPM P-R Int : 172 ms QRS Dur : 94 ms QT Int : 402 ms P-R-T Axes : -7 34 32 degrees QTc Int : 458 ms Normal sinus rhythm Septal infarct , age undetermined Abnormal ECG When compared with ECG of 30-JAN-2023 01:02, Questionable change in QRS duration Septal infarct is now present Confirmed by Artur Martinez (4) on 02/06/2023 4:35:48 PM Referred By: Confirmed By: Artur Martinez
[2023-02-06] MEDS: NS 1,000 ML IV 1,000 ML IV SCH (15:28)
[2023-02-06 15:30] LABS: BILIRUBIN,URINE NEGATIVE (NEGATIVE); BLOOD/HEMOGLOBIN,URINE 2+ (NEGATIVE); GLUCOSE, URINE NEGATIVE (NEGATIVE); KETONES,URINE 1+ (NEGATIVE); LEUKOCYTE ESTERASE ,URINE NEGATIVE (NEGATIVE); NITRITES,URINE NEGATIVE (NEGATIVE); PROTEIN,URINE 1+ (NEGATIVE); UROBILINOGEN,URINE 1+ (NORMAL)
[2023-02-06 15:35] LABS: APPEARANCE,URINE CLEAR (CLEAR); COLOR,URINE YELLOW (YELLOW)
[2023-02-06 15:43] LABS: BACTERIA,URINE TRACE /HPF (NEGATIVE); RBC,URINE 0-2 /HPF (0-3); SQUAMOUS EPITHELIAL CELL,UR RARE /HPF (NEGATIVE)
--- NOTE | 2023-02-06 17:37 | EKG ---
Test Reason : SOB Blood Pressure : */* mmHG Vent. Rate : 66 BPM Atrial Rate : 66 BPM P-R Int : 172 ms QRS Dur : 88 ms QT Int : 400 ms P-R-T Axes : -5 -8 64 degrees QTc Int : 419 ms Normal sinus rhythm Nonspecific T wave abnormality Abnormal ECG When compared with ECG of 06-FEB-2023 14:44, Criteria for Septal infarct are no longer present Confirmed by Artur Martinez (4) on 02/07/2023 8:39:14 AM Referred By: Confirmed By: Artur Martinez
[2023-02-06 17:40] LABS: AMYLASE 61 Units/L (25-115); LIPASE 186 Units/L (73-393)
[2023-02-06] MEDS: AMBIEN PO SCH (20:35)
[2023-02-06] MEDS: NORCO 5/325 MG TAB PO PRN (20:37)
[2023-02-06] MEDS: LASIX PO SCH (20:38)
[2023-02-06] MEDS: PROTONIX TAB 40 MG PO SCH (20:38)
[2023-02-06] MEDS: K-DUR TAB 20 MEQ PO SCH (20:38)
[2023-02-06] MEDS: SELEXIPAG 800 MCG PO SCH (20:40)
[2023-02-06] MEDS: NEURONTIN CAP 300 MG PO SCH (22:00)
[2023-02-06] MEDS: RIOCIGUAT 2.5 MG PO SCH (22:00)
--- NOTE | 2023-02-06 23:58 | EKG ---
Test Reason : SOB Blood Pressure : */* mmHG Vent. Rate : 73 BPM Atrial Rate : 73 BPM P-R Int : 166 ms QRS Dur : 86 ms QT Int : 384 ms P-R-T Axes : -11 -6 43 degrees QTc Int : 423 ms Normal sinus rhythm T wave abnormality, consider anterior ischemia Abnormal ECG When compared with ECG of 06-FEB-2023 17:22, (Unconfirmed) No significant change was found Confirmed by Artur Martinez (4) on 02/07/2023 8:39:10 AM Referred By: Confirmed By: Artur Martinez
[2023-02-07] MEDS: NS 1,000 ML IV 1,000 ML IV SCH (03:00)
[2023-02-07 05:38] LABS: BASOPHILS % (AUTO) 0.6 % (0.2-1.0); EOSINOPHILS # (AUTO) 0.3 x10^3/uL (0.0-0.2); EOSINOPHILS % (AUTO) 4.6 % (0.9-2.9); HEMATOCRIT 36.4 % (36.0-47.0); HEMOGLOBIN 12.4 g/dL (12.0-16.0); LYMPHOCYTES % (AUTO) 47.7 % (21.0-51.0); MEAN CORPUSCULAR HEMOGLOBIN 28.6 pg (27.0-34.0); MEAN CORPUSCULAR VOLUME 84.1 fL (80.0-100.0); MEAN PLATELET VOLUME 9.1 fL (7.4-11.0); MONOCYTES # (AUTO) 0.5 x10^3/uL (0.3-0.8); MONOCYTES % (AUTO) 8.5 % (0.0-13.0); NEUTROPHILS # (AUTO) 2.4 x10^3/uL (2.2-4.8); NEUTROPHILS % (AUTO) 38.6 % (42.0-75.0); PLATELET COUNT 263 X10^3/uL (150.0-450.0); RED BLOOD COUNT 4.33 X10^6/uL (3.5-5.4); RED CELL DISTRIBUTION WIDTH 15.9 % (11.6-16.5); WHITE BLOOD COUNT 6.3 X10^3/uL (3.6-10.0)
[2023-02-07] MEDS: NEURONTIN CAP 300 MG PO SCH ×3 (05:45→21:15)
[2023-02-07] MEDS: RIOCIGUAT 2.5 MG PO SCH ×3 (05:45→21:27)
[2023-02-07 05:55] LABS: ALANINE AMINOTRANSFERASE 18 Units/L (12-78); ALBUMIN 3.3 g/dL (3.4-5.0); ALKALINE PHOSPHATASE 94 Units/L (46-116); ASPARTATE AMINO TRANSFERASE 10 Units/L (15-37); BLOOD UREA NITROGEN 11 mg/dL (7-18); CALCIUM 8.4 mg/dL (8.5-10.1); CARBON DIOXIDE 27.7 mmol/L (21-32); CHLORIDE 107 mmol/L (98-107); CREATININE 0.74 mg/dL (0.55-1.02); GLUCOSE 101 mg/dL (65-99); POTASSIUM 3.7 mmol/L (3.5-5.1); SODIUM 142 mmol/L (136-145); TOTAL PROTEIN 6.9 g/dL (6.4-8.2); eGFR NON BLACK RACES > 60 (>60)
[2023-02-07] MEDS: K-DUR TAB 20 MEQ PO SCH ×2 (11:01→21:16)
[2023-02-07] MEDS: CLARITIN PO SCH (11:01)
[2023-02-07] MEDS: PROTONIX TAB 40 MG PO SCH ×2 (11:02→21:16)
[2023-02-07] MEDS: SELEXIPAG 800 MCG PO SCH ×2 (11:02→21:25)
[2023-02-07] MEDS: MACITENTAN 10 MG PO SCH (11:02)
[2023-02-07] MEDS: VITAMIN D3 125 mcg (5,000 UNITS) PO SCH (11:02)
[2023-02-07] MEDS: LASIX PO SCH ×2 (11:02→21:16)
[2023-02-07] MEDS: MOBIC TAB 15 MG PO SCH (11:02)
[2023-02-07] MEDS: ZYLOPRIM PO SCH (11:03)
[2023-02-07] MEDS ORDERED: ZOFRAN INJ 4 MG VIAL IVP PRN (11:33)
--- NOTE | 2023-02-07 11:45 | DR.H&P ---
H&P - History & Physical for Day of: H&P Date: 02/06/23 - Chief Complaint Chief Complaint: WEAKNESS, RLQ ABDOMINAL PAIN, SORE THROAT, HYPOTENSION - History of Present Illness History of Present Illness: IS A 62 YEAR OLD PATIENT OF OURS. SHE PRESENTED TO THE OFFICE ON 02/06/23 FOR A HOSPITAL FOLLOW-UP. SHE WAS HOSPITALIZED FROM 01/29/23 UNTIL 01/30/23 FOR TREATMENT OF CHEST PAIN RULE OUT ACUTE [place]. DURING HER HOSPITAL STAY, SERIAL CARDIAC ENZYMES AND EKGS WERE OBTAINED, WHICH ALL TURNED OUT TO BE WITHIN NORMAL LIMITS. SHE WAS DISCHARGED HOME AT THAT TIME WITH INSTRUCTIONS TO CONTINUE HER CURRENT MEDICATIONS. SHE WAS INSTRUCTED TO FOLLOW- UP WITH HER SOCIAL AND HUMAN SERVICES ASSISTANT, , BUT AN APPOINTMENT WITH HIM IS NOT AVAILABLE UNTIL April. DURING HER FOLLOW-UP VISIT, PATIENT COMPLAINED OF GENERALIZED WEAKNESS, RIGHT LOWER QUADRANT ABDOMINAL PAIN, SORE THROAT, AND DECREASED BLOOD PRESSURE. SHE ALSO REPORTS SEVERAL EPISODES OF NAUSEA AND REPORTS VOMITING A FEW TIMES. SHE DESCRIBES THE RLQ PAIN CRAMPING AND INTERMITTENT. SHE RATES PAIN A 8/10 UPON EXAMINATION. HER PMH INCLUDES: SEIZURE DISORDER, HTN, PULMONARY HYPERTENSION, GERD, PUD, KIDNEY STONES. DECISION WAS MADE TO READMIT PATIENT TO THE HOSPITAL FOR FURTHER EVALUATION AND TREATMENT. ON ARRIVAL TO THE HOSPTIAL, HER VITALS WERE: 98.1-79-18-98%-130/87. LABS WERE OBTAINED. WBC 7.4, RBC 4.66, HGB 13.1, HCT 39.5, PLT COUNT 281, SODIUM 142, POTASSIUM 3.8, CHLORIDE 105, CARBON DIOXIDE 28.4, BUN 9, CREATININE 0.79, GLUCOSE 135, CALCIUM 8.8, AST 15, ALT 18, ALK PHOS 113, TOTAL PROTEIN 7.8, ALBUMIN 3.7, TROPONIN 98, CREATININE 5.5, AMYLASE 61, LIPASE 186. A URINALYSIS WAS OBTAINED AND REVEALED: WBC 0-2, RBC 0-2, LEUKOCYTES NEGATIVE, BACTERIA TRACE, KETONES 1+, NITRITE NEGATIVE. A URINE CULTURE WAS SET UP. SHE WAS SWABBED FOR STREP, WHICH WAS NEGATIVE. A RESPIRATORY VIRAL PANEL WAS SET UP. EKG WAS OBTAINED AND REVEALED: NORMAL SINUS RHYTHM WITH HR 78 BPM. SHE WAS STARTED ON NORMAL SALINE AT 80 ML/HR, ZOFRAN 4MG IV Q4H PRN NAUSEA, NORCO 5/325MG PO Q6H PRN, AND HER HOME MEDICATIONS WERE RESUMED. HOME MEDICATIONS INCLUDE: POTASSIUM CHLORINDE, PANTOPRAZOLE, FUROSEMIDE, ALLOPURINOL, ZOLPIDEM, MELOXICAM, LORATADINE, GABAPENTIN, VITAMIN D3, UPTRAVI, ADEMPAS, AND OPSUMIT. WE PLAN TO OBTAIN AN ABDOMEN/PELVIS CT WITH CONTRAST. OTHERWISE, WE WILL FOLLOW-UP WITH AM LABS AND CONTINUE TO [facility]. TIME SPENT ON CLINICAL ASSESSMENT, REVIWING LABS AND IMAGING, DECISION MAKING, AND DOCUMENTATION GREATER THAN 75 MINUTES. - Past Medical History Past Medical History: Hypertension, GERD, Arthritis, CHF Additional Medical History: PULMONARY HYPERTENSION - Past Surgical History Surgical History: , Other - Family History Family Medical History: [place], Hypertension - Social History Does patient currently use any type of tobacco product: No Have you used tobacco products in the last 12 months: No Type of Tobacco Use: None Does any household member use tobacco: No Alcohol Use: None Drug Use: None - Medications Home Medications: Home Medications Medication Instructions Recorded Confirmed Type allopurinol 100 mg tablet 200 mg PO QDAY 10/28/22 01/29/23 History furosemide 40 mg tablet 40 mg PO BID 10/28/22 01/29/23 History loratadine 10 mg tablet 10 mg PO QDAY 10/28/22 01/29/23 History macitentan 10 mg tablet (Opsumit) 10 mg PO QDAY 10/28/22 01/29/23 History meloxicam 15 mg tablet 15 mg PO QDAY PRN 10/28/22 01/29/23 History potassium chloride 20 mEq 20 meq PO BID 10/28/22 01/29/23 History tablet,extended release riociguat 2.5 mg tablet (Adempas) 2.5 mg PO TID 10/28/22 01/29/23 History selexipag 800 mcg tablet (Uptravi) 800 mcg PO BID 10/28/22 01/29/23 History cholecalciferol (vitamin D3) 125 125 mcg PO DAILY 01/29/23 01/29/23 History mcg (5,000 unit) tablet (Vitamin D3) gabapentin 300 mg capsule 300 mg PO HS 01/29/23 01/29/23 History ibuprofen 800 mg tablet 800 mg PO .Q6-8H PRN 01/29/23 01/29/23 History pantoprazole 40 mg tablet,delayed 40 mg PO BID 01/29/23 01/29/23 History release (Protonix) allopurinol 100 mg tablet 2 tab PO QDAY 02/06/23 02/06/23 History cholecalciferol (vitamin D3) 125 1 cap PO QDAY 02/06/23 02/06/23 History mcg (5,000 unit) capsule furosemide 40 mg tablet 1 tab PO BID 02/06/23 02/06/23 History gabapentin 300 mg capsule 1 cap PO TID 02/06/23 02/06/23 History loratadine 10 mg tablet 1 tab PO QDAY 02/06/23 02/06/23 History macitentan 10 mg tablet (Opsumit) 1 tab PO QDAY 02/06/23 02/06/23 History meloxicam 15 mg tablet 1 tab PO QDAY 02/06/23 02/06/23 History pantoprazole 40 mg tablet,delayed 1 tab PO BID 02/06/23 02/06/23 History release potassium chloride 20 mEq 1 tab PO BID 02/06/23 02/06/23 History tablet,extended release riociguat 2.5 mg tablet (Adempas) 1 tab PO TID 02/06/23 02/06/23 History selexipag 800 mcg tablet (Uptravi) 1 tab PO BID 02/06/23 02/06/23 History zolpidem 10 mg tablet 1 tab PO QPM 02/06/23 02/06/23 History zolpidem 12.5 mg tablet,extended 1 tab PO QPM 02/06/23 02/06/23 History release,multiphase - Review of Systems Constitutional: Weakness Eyes: No Symptoms Reported ENT: No Symptoms Reported Respiratory: No Symptoms Reported Cardiovascular: No Symptoms Reported Gastrointestinal: Nausea, Vomiting, Abdominal Pain. denies: Diarrhea, Constipation, Melena Genitourinary: No Symptoms Reported Musculoskeletal: No Symptoms Reported Skin: No Symptoms Reported Neurological: Weakness - Physical Exam Vital Signs: Temperature 97.8 F Temperature 98.1 F Pulse Rate [Left Brachial] 68 Pulse Rate [Left Brachial] 79 Respiratory Rate 18 Respiratory Rate 18 Blood Pressure [Right Arm] 109/60 Blood Pressure [Left Arm] 130/87 Blood Pressure [Left Arm] 114/61 O2 Sat by Pulse Oximetry 97 O2 Sat by Pulse Oximetry 98 Oriented: Normal Eyes: Normal Ear: Normal Nose: Normal Throat: Normal Respiratory: Clear Throughout Cardiovascular: Normal : Normal Auscultation: Bowel Sounds: Normal Palpation: Normal Tenderness: RLQ, Moderate. negative: Rebound, Guarding, Rigidity Skin: Decreased Turgur Musculoskeletal: Normal Psychiatric: Normal Mood Description: Calm Affect: Normal Speech Pattern: Clear - Assessment/Plan (1) Abdominal pain Qualifiers: Abdominal location: right lower quadrant Qualified Code(s): R10.31 - Right lower quadrant pain Status: Acute Plan: ADMIT, OBTAIN ABDOMEN/PELVIS CT, NORMAL SALINE AT 80 ML/HR, ZOFRAN 4MG IV Q4H PRN NAUSEA, NORCO 5/325MG PO Q6H PRN, AND HER HOME MEDICATIONS WERE RESUMED. HOME MEDICATIONS INCLUDE: POTASSIUM CHLORIDE, PANTOPRAZOLE, FUROSEMIDE, ALLOPURINOL, ZOLPIDEM, MELOXICAM, LORATADINE, GABAPENTIN, VITAMIN D3, UPTRAVI, ADEMPAS, AND OPSUMIT. (2) Nausea and vomiting Qualifiers: Vomiting type: unspecified Qualified Code(s): R11.2 - Nausea with vomiting, unspecified Status: Acute (3) Generalized weakness Status: Acute (4) Pulmonary hypertension Status: Chronic (5) Gout Qualifiers: Gout site: multiple sites Status: Chronic (6) Insomnia Qualifiers: Insomnia type: primary Qualified Code(s): F51.01 - Primary insomnia Status: Chronic (7) Gastroesophageal reflux disease Qualifiers: Esophagitis presence: esophagitis presence not specified Qualified Code(s): K21.9 - Gastro-esophageal reflux disease without esophagitis Status: Chronic - Allergies Allergies/Adverse Reactions: Allergies Allergy/AdvReac Type Severity Reaction Status Date / Time morphine AdvReac Mild itching Verified 02/06/23 14:06
[2023-02-07] MEDS: NORCO 5/325 MG TAB PO PRN (16:51)
[2023-02-07] MEDS: AMBIEN PO SCH (21:15)
[2023-02-08] MEDS: NS 1,000 ML IV 1,000 ML IV SCH ×3 (04:50→19:00)
[2023-02-08 05:27] LABS: BASOPHILS # (AUTO) 0.1 X10^3/uL (0.0-0.1); EOSINOPHILS # (AUTO) 0.4 x10^3/uL (0.0-0.2); EOSINOPHILS % (AUTO) 5.3 % (0.9-2.9); HEMOGLOBIN 12.5 g/dL (12.0-16.0); LYMPHOCYTES # (AUTO) 2.6 X10^3/uL (1.3-2.9); LYMPHOCYTES % (AUTO) 33.3 % (21.0-51.0); MEAN CORPUSCULAR HEMOGLOBIN 28.3 pg (27.0-34.0); MEAN CORPUSCULAR HGB CONC 33.9 g/dL (33.0-35.0); MEAN CORPUSCULAR VOLUME 83.5 fL (80.0-100.0); MEAN PLATELET VOLUME 8.8 fL (7.4-11.0); MONOCYTES # (AUTO) 0.6 x10^3/uL (0.3-0.8); MONOCYTES % (AUTO) 8.2 % (0.0-13.0); NEUTROPHILS # (AUTO) 4.1 x10^3/uL (2.2-4.8); NEUTROPHILS % (AUTO) 52.2 % (42.0-75.0); PLATELET COUNT 282 X10^3/uL (150.0-450.0); RED BLOOD COUNT 4.43 X10^6/uL (3.5-5.4); RED CELL DISTRIBUTION WIDTH 15.9 % (11.6-16.5); WHITE BLOOD COUNT 7.8 X10^3/uL (3.6-10.0)
[2023-02-08] MEDS: NEURONTIN CAP 300 MG PO SCH ×3 (05:27→21:25)
[2023-02-08] MEDS: RIOCIGUAT 2.5 MG PO SCH ×3 (05:28→21:29)
[2023-02-08 05:50] LABS: ALANINE AMINOTRANSFERASE 19 Units/L (12-78); ALBUMIN 3.3 g/dL (3.4-5.0); ALKALINE PHOSPHATASE 102 Units/L (46-116); ASPARTATE AMINO TRANSFERASE 11 Units/L (15-37); BLOOD UREA NITROGEN 8 mg/dL (7-18); CALCIUM 8.2 mg/dL (8.5-10.1); CARBON DIOXIDE 27.8 mmol/L (21-32); CHLORIDE 106 mmol/L (98-107); COR CA(FOR HYPOALB) 8.8 mg/dL (8.5-10.1); CREATININE 0.73 mg/dL (0.55-1.02); GLUCOSE 109 mg/dL (65-99); POTASSIUM 3.4 mmol/L (3.5-5.1); SODIUM 143 mmol/L (136-145); eGFR NON BLACK RACES > 60 (>60)
--- NOTE | 2023-02-08 06:07 | RAD ---
HISTORYShortness of breath and weaknessSTUDYCHEST, 1 [id number]/25/2023FINDINGSThe trachea is midline. The cardiac silhouette is unremarkable . The lungs are clear without focal infiltrate or effusion. The bony thorax is unremarkable.IMPRESSIONNo acute cardiopulmonary disease.Electronically signed by: REINALDO PÉREZ (Feb 08, 2023 06:05:17)
--- NOTE | 2023-02-08 06:09 | RAD ---
HISTORYABD PAINSTUDYKUBCOMPARISONNoneFIND INGSEvaluation of the abdomen demonstrates a normal bowel gas pattern. No pathological soft tissue mass or calcification can be observed. The bony structures are grossly intact.IMPRESSIONNo evidence for acute abdominal pathology identified.Electronically signed by: REINALDO PÉREZ (Feb 08, 2023 06:08:05)
--- NOTE | 2023-02-08 06:17 | CT ---
HISTORYRight lower abdominal pain with nausea and vomiting.STUDYCT abdomen and pelvis without contrastCOMPARISONCT abdomen with contrast from 06/19/2020.TECHNIQUEMultiple axial images of the abdomen and pelvis were obtained from the lung bases to the pubic symphysis without the administration of IV contrast. Dose reduction techniques including Automated Exposure Control (AEC) and adjustment of mA and kV were utilized.FINDINGSLower chest: No significant abnormality.Liver: No significant abnormality.Biliary: The gallbladder is unremarkable. No biliary ductal dilatation.Pancreas:No significant abnormality.Spleen: No significant abnormality.Adrenals: No significant abnormality.Kidneys and ureters: No significant abnormality.Stomach and bowel: No significant abnormality. Normal appendix.Peritoneum: No free air, free fluid or fluid collection.Vasculature: No acute findings. There is mild atherosclerosis.Lymph nodes: No adenopathy.Bladder: No significant abnormality.Reproductive organs: No significant abnormality.Additional findings: [None.]Bones: There are mild degenerative changes along the spine without acute findings.IMPRESSION1. No acute findings explaining the patient's complaints.2. Additional findings as above.Electronically signed by: Colt Quintanilla (Feb 08, 2023 06:16:07)
[2023-02-08] MEDS: LASIX PO SCH ×2 (09:32→21:27)
[2023-02-08] MEDS: CLARITIN PO SCH (09:32)
[2023-02-08] MEDS: K-DUR TAB 20 MEQ PO SCH ×2 (09:32→21:27)
[2023-02-08] MEDS: VITAMIN D3 125 mcg (5,000 UNITS) PO SCH (09:32)
[2023-02-08] MEDS: MOBIC TAB 15 MG PO SCH (09:32)
[2023-02-08] MEDS: PROTONIX TAB 40 MG PO SCH ×2 (09:32→21:27)
[2023-02-08] MEDS: ZYLOPRIM PO SCH (09:32)
[2023-02-08] MEDS: MACITENTAN 10 MG PO SCH (09:33)
[2023-02-08] MEDS: SELEXIPAG 800 MCG PO SCH ×2 (09:34→21:28)
--- NOTE | 2023-02-08 11:23 | PCM.PROG ---
Progress Note - Progress Note for Day of Date of Exam: 02/08/23 - Subjective Subjective: IS CURRENTLY OBSERVATION STATUS FOR TREATMENT OF LEFT SIDED CHEST PAIN, RLQ ABDOMINAL PAIN, NAUSEA AND VOMITING, GENERALIZED WEAKNESS. SHE HAS A PMH OF PULMONARY HTN, GOUT, INSOMNIA, AND GERD. TODAY, SHE IS ALERT AND ORIENTED, LYING IN BED ON MORNING ROUNDS. SHE CONTINUES TO COMPLAIN OF PRESSURE LIKE PAIN TO THE LEFT SIDE CHEST, WEAKNESS, AND OCCASIONAL NAUSEA. SHE DENIES ABDOMINAL PAIN THIS MORNING. UPON EXAMINATION, HEART IS REGULAR IN RATE AND RHYTHM. BILATERAL LUNGS ARE NOTED WITH DIMINISHED LUNG SOUNDS THROUGHOUT. ABDOMEN IS ROUND, SOFT, AND NON-TENDER WITH NORMAL BOWEL SOUNDS NOTED IN ALL QUADRANTS. GOOD MOVEMENT NOTED TO UPPER AND LOWER EXTREMITIES WITH NO EDEMA NOTED. HER VITALS THIS MORNING ARE: 98.9-76-18-97%-111/63. LABS WERE OBTAINED. WBC 7.8, RBC 4.43, HGB 12.5, HCT 37.0, PLT COUNT 282, SODIUM 143, POTASSIUM 3.4, CHLORIDE 106, BUN 8, CREATININE 0.73, GLUCOSE 109, CALCIUM 8.2, AST 11, ALT 19, ALK PHOS 102, TOTAL PROTEIN 7.0, ALBUMIN 3.3. AIT VIRAL PANEL IS PENDING. A KUB WAS OBTAINED YESTERDAY AND REVEALED: NO EVIDENCE FOR ACUTE ABDOMINAL PATHOLOGY. AN ABDOMEN/PELVIS CT WITHOUT CONTRAST WAS OBTAINED WELL AND WAS NEGATIVE FOR ACUTE FINDINGS. SHE IS CURRENTLY RECEIVING NORMAL SALINE AT 80 ML/HR, ZOFRAN 4MG IV Q4H PRN NAUSEA, NORCO 5/325MG PO Q6H PRN, AND HER HOME MEDICATIONS WERE RESUMED. HOME MEDICATIONS INCLUDE: POTASSIUM CHLORINDE, PANTOPRAZOLE, FUROSEMIDE, ALLOPURINOL, ZOLPIDEM, MELOXICAM, LORATADINE, GABAPENTIN, VITAMIN D3, UPTRAVI, ADEMPAS, AND OPSUMIT. WE WILL CONTINUE WITH CURRENT PLAN OF CARE TODAY. OTHERWISE, WE WILL FOLLOW-UP WITH AM LABS AND CONTINUE TO MONITOR. TIME SPENT ON CLINICAL ASSESSMENT, REVIWING LABS AND IMAGING, DECISION MAKING, AND DOCUMENTATION GREATER THAN 45 MINUTES. - Past Medical Family Social History Past Med/Fam/Surg Hx: No changes since H&P Allergies: Allergies morphine Adverse Reaction (Mild, Verified 02/06/23 14:06) itching - Review of Systems ROS: No change since H&P - Vital Signs and I&O's Vital Signs: Temperature 98.9 F Temperature 98.1 F Pulse Rate [Left Brachial] 76 Pulse Rate [Left Brachial] 79 Respiratory Rate 18 Respiratory Rate 18 Blood Pressure [Right Arm] 111/63 Blood Pressure [Left Arm] 130/87 Blood Pressure [Left Arm] 114/61 O2 Sat by Pulse Oximetry 97 O2 Sat by Pulse Oximetry 98 Intake and Output: Intake & Output 02/05/23 02/06/23 02/07/23 02/08/23 11:59 11:59 11:59 11:59 Intake Total 3176 / 3176 1923 / 1923 Output Total 2200 / 2200 900 / 900 Balance 976 / 976 1023 / 1023 - Physical Exam Oriented: Normal Eyes: Normal Ear: Normal Nose: Normal Throat: Normal Respiratory: Generalized, Diminished Cardiovascular: Normal : Normal Auscultation: Bowel Sounds: Normal Palpation: Normal Tenderness: Normal. negative: Rebound, Guarding, Rigidity Skin: Decreased Turgur Musculoskeletal: Normal Psychiatric: Normal Mood Description: Calm Affect: Normal Speech Pattern: Clear - Laboratory and Diagnostics Result Diagrams: 02/08/23 05:00 02/08/23 05:00 Labs: 02/06/23 15:15 Urine,Clean Catch Urine Culture - Final Laboratory WBC 7.8 X10^3/uL (3.6-10.0) 02/08/23 05:00 RBC 4.43 X10^6/uL (3.5-5.4) 02/08/23 05:00 Hgb 12.5 g/dL (12.0-16.0) 02/08/23 05:00 Hct 37.0 % (36.0-47.0) 02/08/23 05:00 MCV 83.5 fL (80.0-100.0) 02/08/23 05:00 MCH 28.3 pg (27.0-34.0) 02/08/23 05:00 MCHC 33.9 g/dL (33.0-35.0) 02/08/23 05:00 RDW 15.9 % (11.6-16.5) 02/08/23 05:00 Plt Count 282 X10^3/uL (150.0-450.0) 02/08/23 05:00 MPV 8.8 fL (7.4-11.0) 02/08/23 05:00 Neut % (Auto) 52.2 % (42.0-75.0) 02/08/23 05:00 Lymph % (Auto) 33.3 % (21.0-51.0) 02/08/23 05:00 [place] % (Auto) 8.2 % (0.0-13.0) 02/08/23 05:00 Eos % (Auto) 5.3 % (0.9-2.9) H 02/08/23 05:00 Baso % (Auto) 1.0 % (0.2-1.0) 02/08/23 05:00 Neut # (Auto) 4.1 x10^3/uL (2.2-4.8) 02/08/23 05:00 Lymph # (Auto) 2.6 X10^3/uL (1.3-2.9) 02/08/23 05:00 [place] # (Auto) 0.6 x10^3/uL (0.3-0.8) 02/08/23 05:00 Eos # (Auto) 0.4 x10^3/uL (0.0-0.2) H 02/08/23 05:00 Baso # (Auto) 0.1 X10^3/uL (0.0-0.1) 02/08/23 05:00 Absolute Nucleated RBC 0.1 /100WBC 02/08/23 05:00 Sodium 143 mmol/L (136-145) 02/08/23 05:00 Corrected Sodium TNP 02/08/23 05:00 Potassium 3.4 mmol/L (3.5-5.1) L 02/08/23 05:00 Chloride 106 mmol/L (98-107) 02/08/23 05:00 Carbon Dioxide 27.8 mmol/L (21-32) 02/08/23 05:00 BUN 8 mg/dL (7-18) 02/08/23 05:00 Creatinine 0.73 mg/dL (0.55-1.02) 02/08/23 05:00 Est GFR (MDRD) Af Amer > 60 (>60) 02/08/23 05:00 Est GFR (MDRD) Non-Af > 60 (>60) 02/08/23 05:00 Glucose 109 mg/dL (65-99) H 02/08/23 05:00 Calcium 8.2 mg/dL (8.5-10.1) L 02/08/23 05:00 Corrected Calcium 8.8 mg/dL (8.5-10.1) 02/08/23 05:00 Total Bilirubin 0.30 mg/dL (0.2-1.0) 02/08/23 05:00 AST 11 Units/L (15-37) L 02/08/23 05:00 ALT 19 Units/L (12-78) 02/08/23 05:00 Alkaline Phosphatase 102 Units/L (46-116) 02/08/23 05:00 Creatine Kinase 69 Units/L (26-192) 02/06/23 21:46 Troponin I High Sens 5.6 ng/L (4.0-60.0) 02/06/23 21:46 B-Natriuretic Peptide 49.7 pg/mL (0-79) 02/08/23 05:00 Total Protein 7.0 g/dL (6.4-8.2) 02/08/23 05:00 Albumin 3.3 g/dL (3.4-5.0) L 02/08/23 05:00 Globulin 3.7 g/dL (2.5-4.5) 02/08/23 05:00 Albumin/Globulin Ratio 0.9 Ratio (1.1-2.1) L 02/08/23 05:00 Amylase 61 Units/L (25-115) 02/06/23 14:30 Lipase 186 Units/L (73-393) 02/06/23 14:30 Specimen Type Clean catch urine 02/06/23 15:15 Urine Color Yellow (YELLOW) 02/06/23 15:15 Urine Appearance Clear (CLEAR) 02/06/23 15:15 Urine pH 6.0 (5.0 - 8.0) 02/06/23 15:15 Ur Specific [place] 1.025 (1.000-1.030) 02/06/23 15:15 Urine Protein 1+ (NEGATIVE) 02/06/23 15:15 Urine Glucose (UA) Negative (NEGATIVE) 02/06/23 15:15 Urine Ketones 1+ (NEGATIVE) 02/06/23 15:15 Urine Blood 2+ (NEGATIVE) 02/06/23 15:15 Urine Nitrite Negative (NEGATIVE) 02/06/23 15:15 Urine Bilirubin Negative (NEGATIVE) 02/06/23 15:15 Urine Urobilinogen 1+ (NORMAL) 02/06/23 15:15 Ur Leukocyte Esterase Negative (NEGATIVE) 02/06/23 15:15 Urine RBC 0-2 /HPF (0-3) 02/06/23 15:15 Urine WBC 0-2 /HPF (0-5) 02/06/23 15:15 Ur Squamous Epith Cells Rare /HPF (NEGATIVE) 02/06/23 15:15 Urine Bacteria Trace /HPF (NEGATIVE) 02/06/23 15:15 Urine Mucus Few /HPF (NEGATIVE) 02/06/23 15:15 Ur Culture Indicated? Yes/culture set up 02/06/23 15:15 S. pyogenes (TEM-PCR) Not detected (NOT DETECT) 02/06/23 17:37 - Plan (1) Abdominal pain Status: Acute Qualifiers: Abdominal location: right lower quadrant Qualified Code(s): R10.31 - Right lower quadrant pain Plan: NORMAL SALINE AT 80 ML/HR, ZOFRAN 4MG IV Q4H PRN NAUSEA, NORCO 5/325MG PO Q6H PRN, AND HER HOME MEDICATIONS WERE RESUMED. HOME MEDICATIONS INCLUDE: POTASSIUM CHLORIDE, PANTOPRAZOLE, FUROSEMIDE, ALLOPURINOL, ZOLPIDEM, MELOXICAM, LORATADINE, GABAPENTIN, VITAMIN D3, UPTRAVI, ADEMPAS, AND OPSUMIT. (2) Chest pain Status: Acute Qualifiers: Chest pain type: unspecified Qualified Code(s): R07.9 - Chest pain, unspecified (3) Nausea and vomiting Status: Acute Qualifiers: Vomiting type: unspecified Qualified Code(s): R11.2 - Nausea with vomiting, unspecified (4) Generalized weakness Status: Acute (5) Pulmonary hypertension Status: Chronic (6) Gout Status: Chronic Qualifiers: Gout site: multiple sites (7) Insomnia Status: Chronic Qualifiers: Insomnia type: primary Qualified Code(s): F51.01 - Primary insomnia (8) Gastroesophageal reflux disease Status: Chronic Qualifiers: Esophagitis presence: esophagitis presence not specified Qualified Code(s): K21.9 - Gastro-esophageal reflux disease without esophagitis
[2023-02-08] MEDS: NORCO 5/325 MG TAB PO PRN ×2 (13:40→21:26)
[2023-02-08] MEDS ORDERED: NORVASC TAB 5 MG ONE (13:59)
[2023-02-08] MEDS ORDERED: COZAAR ONE (13:59)
[2023-02-08] MEDS ORDERED: COREG TAB 25 MG ONE (13:59)
[2023-02-08] MEDS: AMBIEN PO SCH (21:25)
[2023-02-09] MEDS: NEURONTIN CAP 300 MG PO SCH ×3 (05:15→21:00)
[2023-02-09] MEDS: RIOCIGUAT 2.5 MG PO SCH ×3 (05:15→21:00)
[2023-02-09 05:25] LABS: BASOPHILS # (AUTO) 0.1 X10^3/uL (0.0-0.1); BASOPHILS % (AUTO) 0.8 % (0.2-1.0); EOSINOPHILS # (AUTO) 0.3 x10^3/uL (0.0-0.2); EOSINOPHILS % (AUTO) 5.2 % (0.9-2.9); HEMATOCRIT 36.5 % (36.0-47.0); HEMOGLOBIN 12.3 g/dL (12.0-16.0); LYMPHOCYTES % (AUTO) 45.2 % (21.0-51.0); MEAN CORPUSCULAR HEMOGLOBIN 28.2 pg (27.0-34.0); MEAN CORPUSCULAR HGB CONC 33.6 g/dL (33.0-35.0); MEAN CORPUSCULAR VOLUME 84.1 fL (80.0-100.0); MEAN PLATELET VOLUME 8.9 fL (7.4-11.0); MONOCYTES # (AUTO) 0.6 x10^3/uL (0.3-0.8); MONOCYTES % (AUTO) 8.9 % (0.0-13.0); NEUTROPHILS # (AUTO) 2.7 x10^3/uL (2.2-4.8); NEUTROPHILS % (AUTO) 39.9 % (42.0-75.0); PLATELET COUNT 267 X10^3/uL (150.0-450.0); RED BLOOD COUNT 4.34 X10^6/uL (3.5-5.4); RED CELL DISTRIBUTION WIDTH 15.7 % (11.6-16.5); WHITE BLOOD COUNT 6.7 X10^3/uL (3.6-10.0)
[2023-02-09 05:41] LABS: ALANINE AMINOTRANSFERASE 17 Units/L (12-78); ALBUMIN 3.1 g/dL (3.4-5.0); ALKALINE PHOSPHATASE 94 Units/L (46-116); ASPARTATE AMINO TRANSFERASE 8 Units/L (15-37); BLOOD UREA NITROGEN 13 mg/dL (7-18); CALCIUM 8.1 mg/dL (8.5-10.1); CARBON DIOXIDE 28.5 mmol/L (21-32); CHLORIDE 108 mmol/L (98-107); COR CA(FOR HYPOALB) 8.8 mg/dL (8.5-10.1); CREATININE 0.84 mg/dL (0.55-1.02); GLUCOSE 106 mg/dL (65-99); POTASSIUM 3.6 mmol/L (3.5-5.1); SODIUM 143 mmol/L (136-145); TOTAL PROTEIN 6.7 g/dL (6.4-8.2); eGFR NON BLACK RACES > 60 (>60)
[2023-02-09] MEDS: LASIX PO SCH ×2 (08:43→20:43)
[2023-02-09] MEDS: K-DUR TAB 20 MEQ PO SCH ×2 (08:43→20:43)
[2023-02-09] MEDS: PROTONIX TAB 40 MG PO SCH ×2 (08:43→20:43)
[2023-02-09] MEDS: VITAMIN D3 125 mcg (5,000 UNITS) PO SCH (08:43)
[2023-02-09] MEDS: NS 1,000 ML IV 1,000 ML IV SCH ×2 (08:43→20:42)
[2023-02-09] MEDS: CLARITIN PO SCH (08:48)
[2023-02-09] MEDS: MOBIC TAB 15 MG PO SCH (08:48)
[2023-02-09] MEDS: ZYLOPRIM PO SCH (08:48)
[2023-02-09] MEDS: MACITENTAN 10 MG PO SCH (08:49)
[2023-02-09] MEDS: SELEXIPAG 800 MCG PO SCH ×2 (08:50→20:44)
[2023-02-09] MEDS ORDERED: FIORICET TAB PO PRN (10:16)
--- NOTE | 2023-02-09 20:18 | PCM.PROG ---
Progress Note - Progress Note for Day of Date of Exam: 02/09/23 - Subjective Subjective: IS CURRENTLY OBSERVATION STATUS FOR TREATMENT OF LEFT SIDED CHEST PAIN, RLQ ABDOMINAL PAIN, NAUSEA AND VOMITING, GENERALIZED WEAKNESS. SHE HAS A PMH OF PULMONARY HTN, GOUT, INSOMNIA, AND GERD. TODAY, SHE IS ALERT AND ORIENTED, LYING IN BED ON MORNING ROUNDS. SHE CONTINUES TO COMPLAIN OF PRESSURE LIKE PAIN TO THE LEFT SIDE CHEST, WEAKNESS, AND OCCASIONAL NAUSEA. SHE COMPLAINS OF PERSISTENT RIGHT SIDED ABDOMINAL PAIN THIS MORNING. SHE ALSO COMPLAINS OF AN INTERMITTENT HEADACHE. UPON EXAMINATION, HEART IS REGULAR IN RATE AND RHYTHM. BILATERAL LUNGS ARE NOTED WITH DIMINISHED LUNG SOUNDS THROUGHOUT. ABDOMEN IS ROUND, SOFT, AND NOTED WITH RLQ TENDERNESS TO PALPATION. NORMAL BOWEL SOUNDS NOTED IN ALL QUADRANTS. GOOD MOVEMENT NOTED TO UPPER AND LOWER EXTREMITIES WITH NO EDEMA NOTED. HER VITALS THIS MORNING ARE: 98.1-65-20-97%-86/47. LABS WERE OBTAINED. WBC 6.7, RBC 4.34, HGB 12.3, HCT 36.5, PLT COUNT 267, SODIUM 143, POTASSIUM 3.6, CHLORIDE 108, BUN 13, CREATININE 0.84, GLUCOSE 106, CALCIUM 8.1, TOTAL BILI 0.20, AST 8, ALT 17, ALK PHOS 94, TOTAL PROTEIN 6.7, ALBUMIN 3.1. AIT VIRAL PANEL IS PENDING. SHE IS CURRENTLY RECEIVING NORMAL SALINE AT 80 ML/HR, ZOFRAN 4MG IV Q4H PRN NAUSEA, NORCO 5/325MG PO Q6H PRN, AND HER HOME MEDICATIONS WERE RESUMED. HOME MEDICATIONS INCLUDE: POTASSIUM CHLORINDE, PANTOPRAZOLE, FUROSEMIDE, ALLOPURINOL, ZOLPIDEM, MELOXICAM, LORATADINE, GABAPENTIN, VITAMIN D3, UPTRAVI, ADEMPAS, AND OPSUMIT. WE WILL REPEAT AN ABDOMEN/PELVIS CT WITH CONTRAST TODAY. WE WILL ADD FIORICET 2 TABS Q8H PRN. OTHERWISE, WE WILL CONTINUE WITH CURRENT PLAN OF CARE TODAY. WE WILL FOLLOW-UP WITH AM LABS AND CONTINUE TO MONITOR. TIME SPENT ON CLINICAL ASSESSMENT, REVIWING LABS AND IMAGING, DECISION MAKING, AND DOCUMENTATION GREATER THAN 45 MINUTES. - Past Medical Family Social History Past Med/Fam/Surg Hx: No changes since H&P Allergies: Allergies morphine Adverse Reaction (Mild, Verified 02/06/23 14:06) itching - Review of Systems ROS: No change since H&P - Vital Signs and I&O's Vital Signs: Temperature 97.7 F Temperature 98.1 F Pulse Rate [Left Brachial] 71 Pulse Rate [Left Brachial] 79 Respiratory Rate 20 Respiratory Rate 18 Blood Pressure [Right Arm] 110/56 Blood Pressure [Left Arm] 103/58 Blood Pressure [Left Arm] 114/61 O2 Sat by Pulse Oximetry 98 O2 Sat by Pulse Oximetry 98 Intake and Output: Intake & Output 02/07/23 02/08/23 02/09/23 02/10/23 11:59 11:59 11:59 11:59 Intake Total 3176 / 3176 1923 / 1923 2941 / 2941 1120 / 1120 Output Total 2200 / 2200 900 / 900 Balance 976 / 976 1023 / 1023 2941 / 2941 1120 / 1120 - Physical Exam Oriented: Normal Eyes: Normal Ear: Normal Nose: Normal Throat: Normal Respiratory: Generalized, Diminished Cardiovascular: Normal : Normal Auscultation: Bowel Sounds: Normal Palpation: Normal Tenderness: RLQ, Mild. negative: Rebound, Guarding, Rigidity Skin: Decreased Turgur Musculoskeletal: Normal Psychiatric: Normal Mood Description: Calm Affect: Normal Speech Pattern: Clear - Laboratory and Diagnostics Result Diagrams: 02/09/23 04:53 02/09/23 04:53 Labs: 02/06/23 15:15 Urine,Clean Catch Urine Culture - Final Laboratory WBC 6.7 X10^3/uL (3.6-10.0) 02/09/23 04:53 RBC 4.34 X10^6/uL (3.5-5.4) 02/09/23 04:53 Hgb 12.3 g/dL (12.0-16.0) 02/09/23 04:53 Hct 36.5 % (36.0-47.0) 02/09/23 04:53 MCV 84.1 fL (80.0-100.0) 02/09/23 04:53 MCH 28.2 pg (27.0-34.0) 02/09/23 04:53 MCHC 33.6 g/dL (33.0-35.0) 02/09/23 04:53 RDW 15.7 % (11.6-16.5) 02/09/23 04:53 Plt Count 267 X10^3/uL (150.0-450.0) 02/09/23 04:53 MPV 8.9 fL (7.4-11.0) 02/09/23 04:53 Neut % (Auto) 39.9 % (42.0-75.0) L 02/09/23 04:53 Lymph % (Auto) 45.2 % (21.0-51.0) 02/09/23 04:53 [place] % (Auto) 8.9 % (0.0-13.0) 02/09/23 04:53 Eos % (Auto) 5.2 % (0.9-2.9) H 02/09/23 04:53 Baso % (Auto) 0.8 % (0.2-1.0) 02/09/23 04:53 Neut # (Auto) 2.7 x10^3/uL (2.2-4.8) 02/09/23 04:53 Lymph # (Auto) 3.0 X10^3/uL (1.3-2.9) H 02/09/23 04:53 [place] # (Auto) 0.6 x10^3/uL (0.3-0.8) 02/09/23 04:53 Eos # (Auto) 0.3 x10^3/uL (0.0-0.2) H 02/09/23 04:53 Baso # (Auto) 0.1 X10^3/uL (0.0-0.1) 02/09/23 04:53 Absolute Nucleated RBC 0.0 /100WBC 02/09/23 04:53 Sodium 143 mmol/L (136-145) 02/09/23 04:53 Corrected Sodium TNP 02/09/23 04:53 Potassium 3.6 mmol/L (3.5-5.1) 02/09/23 04:53 Chloride 108 mmol/L (98-107) H 02/09/23 04:53 Carbon Dioxide 28.5 mmol/L (21-32) 02/09/23 04:53 BUN 13 mg/dL (7-18) 02/09/23 04:53 Creatinine 0.84 mg/dL (0.55-1.02) 02/09/23 04:53 Est GFR (MDRD) Af Amer > 60 (>60) 02/09/23 04:53 Est GFR (MDRD) Non-Af > 60 (>60) 02/09/23 04:53 Glucose 106 mg/dL (65-99) H 02/09/23 04:53 Calcium 8.1 mg/dL (8.5-10.1) L 02/09/23 04:53 Corrected Calcium 8.8 mg/dL (8.5-10.1) 02/09/23 04:53 Total Bilirubin 0.20 mg/dL (0.2-1.0) 02/09/23 04:53 AST 8 Units/L (15-37) L 02/09/23 04:53 ALT 17 Units/L (12-78) 02/09/23 04:53 Alkaline Phosphatase 94 Units/L (46-116) 02/09/23 04:53 Creatine Kinase 69 Units/L (26-192) 02/06/23 21:46 Troponin I High Sens 5.6 ng/L (4.0-60.0) 02/06/23 21:46 B-Natriuretic Peptide 49.7 pg/mL (0-79) 02/08/23 05:00 Total Protein 6.7 g/dL (6.4-8.2) 02/09/23 04:53 Albumin 3.1 g/dL (3.4-5.0) L 02/09/23 04:53 Globulin 3.6 g/dL (2.5-4.5) 02/09/23 04:53 Albumin/Globulin Ratio 0.9 Ratio (1.1-2.1) L 02/09/23 04:53 Amylase 61 Units/L (25-115) 02/06/23 14:30 Lipase 186 Units/L (73-393) 02/06/23 14:30 Specimen Type Clean catch urine 02/06/23 15:15 Urine Color Yellow (YELLOW) 02/06/23 15:15 Urine Appearance Clear (CLEAR) 02/06/23 15:15 Urine pH 6.0 (5.0 - 8.0) 02/06/23 15:15 Ur Specific [place] 1.025 (1.000-1.030) 02/06/23 15:15 Urine Protein 1+ (NEGATIVE) 02/06/23 15:15 Urine Glucose (UA) Negative (NEGATIVE) 02/06/23 15:15 Urine Ketones 1+ (NEGATIVE) 02/06/23 15:15 Urine Blood 2+ (NEGATIVE) 02/06/23 15:15 Urine Nitrite Negative (NEGATIVE) 02/06/23 15:15 Urine Bilirubin Negative (NEGATIVE) 02/06/23 15:15 Urine Urobilinogen 1+ (NORMAL) 02/06/23 15:15 Ur Leukocyte Esterase Negative (NEGATIVE) 02/06/23 15:15 Urine RBC 0-2 /HPF (0-3) 02/06/23 15:15 Urine WBC 0-2 /HPF (0-5) 02/06/23 15:15 Ur Squamous Epith Cells Rare /HPF (NEGATIVE) 02/06/23 15:15 Urine Bacteria Trace /HPF (NEGATIVE) 02/06/23 15:15 Urine Mucus Few /HPF (NEGATIVE) 02/06/23 15:15 Ur Culture Indicated? Yes/culture set up 02/06/23 15:15 Resp Viral Panel (PCR) See scanned report 02/07/23 05:30 S. pyogenes (TEM-PCR) Not detected (NOT DETECT) 02/06/23 17:37 - Plan (1) Abdominal pain Status: Acute Qualifiers: Abdominal location: right lower quadrant Qualified Code(s): R10.31 - Right lower quadrant pain Plan: NORMAL SALINE AT 80 ML/HR, ZOFRAN 4MG IV Q4H PRN NAUSEA, NORCO 5/325MG PO Q6H PRN, AND HER HOME MEDICATIONS WERE RESUMED. HOME MEDICATIONS INCLUDE: POTASSIUM CHLORIDE, PANTOPRAZOLE, FUROSEMIDE, ALLOPURINOL, ZOLPIDEM, MELOXICAM, LORATADINE, GABAPENTIN, VITAMIN D3, UPTRAVI, ADEMPAS, AND OPSUMIT. OBTAIN ABDOMEN/PELVIS CT WITH CONTRAST. (2) Chest pain Status: Acute Qualifiers: Chest pain type: unspecified Qualified Code(s): R07.9 - Chest pain, unspecified (3) Nausea and vomiting Status: Acute Qualifiers: Vomiting type: unspecified Qualified Code(s): R11.2 - Nausea with vomiting, unspecified (4) Generalized weakness Status: Acute (5) Pulmonary hypertension Status: Chronic (6) Gout Status: Chronic Qualifiers: Gout site: multiple sites (7) Insomnia Status: Chronic Qualifiers: Insomnia type: primary Qualified Code(s): F51.01 - Primary insomnia (8) Gastroesophageal reflux disease Status: Chronic Qualifiers: Esophagitis presence: esophagitis presence not specified Qualified Code(s): K21.9 - Gastro-esophageal reflux disease without esophagitis
[2023-02-09] MEDS: AMBIEN PO SCH (20:43)
[2023-02-09] MEDS ORDERED: MILK OF MAGNESIA PO PRN (22:35)
[2023-02-09] MEDS ORDERED: COLACE CAP 100 MG PO SCH (23:00)
[2023-02-10] MEDS: NEURONTIN CAP 300 MG PO SCH (05:02)
[2023-02-10] MEDS: RIOCIGUAT 2.5 MG PO SCH (05:02)
[2023-02-10 06:42] LABS: BASOPHILS % (AUTO) 0.5 % (0.2-1.0); EOSINOPHILS # (AUTO) 0.3 x10^3/uL (0.0-0.2); EOSINOPHILS % (AUTO) 5.3 % (0.9-2.9); HEMATOCRIT 36.1 % (36.0-47.0); LYMPHOCYTES # (AUTO) 2.2 X10^3/uL (1.3-2.9); MEAN CORPUSCULAR HGB CONC 33.3 g/dL (33.0-35.0); MEAN CORPUSCULAR VOLUME 84.2 fL (80.0-100.0); MEAN PLATELET VOLUME 9.6 fL (7.4-11.0); MONOCYTES # (AUTO) 0.5 x10^3/uL (0.3-0.8); MONOCYTES % (AUTO) 8.5 % (0.0-13.0); NEUTROPHILS # (AUTO) 3.2 x10^3/uL (2.2-4.8); NEUTROPHILS % (AUTO) 50.7 % (42.0-75.0); PLATELET COUNT 245 X10^3/uL (150.0-450.0); RED BLOOD COUNT 4.29 X10^6/uL (3.5-5.4); RED CELL DISTRIBUTION WIDTH 15.8 % (11.6-16.5); WHITE BLOOD COUNT 6.2 X10^3/uL (3.6-10.0)
[2023-02-10 06:49] LABS: ALANINE AMINOTRANSFERASE 15 Units/L (12-78); ALKALINE PHOSPHATASE 93 Units/L (46-116); ASPARTATE AMINO TRANSFERASE 8 Units/L (15-37); BLOOD UREA NITROGEN 9 mg/dL (7-18); CALCIUM 8.2 mg/dL (8.5-10.1); CARBON DIOXIDE 28.5 mmol/L (21-32); CHLORIDE 107 mmol/L (98-107); CREATININE 0.71 mg/dL (0.55-1.02); GLUCOSE 106 mg/dL (65-99); POTASSIUM 3.3 mmol/L (3.5-5.1); SODIUM 143 mmol/L (136-145); TOTAL PROTEIN 6.5 g/dL (6.4-8.2); eGFR NON BLACK RACES > 60 (>60)
[2023-02-10] MEDS: MOBIC TAB 15 MG PO SCH (10:00)
[2023-02-10] MEDS: VITAMIN D3 125 mcg (5,000 UNITS) PO SCH (10:00)
[2023-02-10] MEDS: CLARITIN PO SCH (10:01)
[2023-02-10] MEDS: LASIX PO SCH (10:01)
--- NOTE | 2023-02-10 10:01 | CT ---
HISTORYRIGHT SIDE ABDOMINAL PAIN. History of congestive heart failure and hypertension.STUDYABDOMEN/PELVIS WITH CONCOMPARISONCT abdomen and pelvis 02/07/2023TECHNIQUEMultiple CT axial images of the abdomen and pelvis were obtained with IV contrast. Coronal and sagittal images were reconstructed. Dose reduction techniques included Automated Exposure Control (AEC) and adjustment of mA and kV.FINDINGSThe lung bases are clear. Heart size is normal.The liver is large measuring over 20 cm right midclavicular line. It otherwise has normal enhancement. The gallbladder has no inflammation around it. The spleen is normal in size and shape.The adrenal glands are normal. The pancreas is normal.Renal enhancement is symmetric with no solid mass. There is no hydronephrosis or significant perirenal edema. The bladder is normally distended. It has no wall thickening or perivesical edema.The bowel is not dilated. There is no wall thickening in the bowel or edema around the bowel. The appendix is normal in size with no inflammation around it. No evidence of appendicitis.Moderate sigmoid-shaped scoliosis is present. This is stable. Tiny umbilical hernia contains fat, unchanged from prior study.Small retroperitoneal lymph nodes are probably reactive; these are unchanged from a study dated 06/19/2020.IMPRESSION1. Hepatomegaly2. Stable retroperitoneal lymphadenopathy, probably reactiveElectronically signed by: Dimas Asencio (Feb 10, 2023 09:59:59)
[2023-02-10] MEDS: ZYLOPRIM PO SCH (10:02)
[2023-02-10] MEDS: PROTONIX TAB 40 MG PO SCH (10:02)
[2023-02-10] MEDS: MACITENTAN 10 MG PO SCH ×2 (10:02→13:34)
[2023-02-10] MEDS: SELEXIPAG 800 MCG PO SCH (10:02)
[2023-02-10] MEDS: NS 1,000 ML IV 1,000 ML IV SCH (10:03)
[2023-02-10 13:34] VITALS: BP 114/58; PULSE 81; TEMP 98.7; O2SAT 93
[2023-02-10] MEDS ORDERED: K-DUR TAB 20 MEQ PO SCH (14:00)
== END 2023-02-10 13:20 | disposition home or self-care (01) ==
LOC: MED/SURG
PROVIDERS: ADMIT Internal Medicine; ATTEND Internal Medicine
DX: K21.9 Gastro-esophageal reflux disease without esophagitis; R16.0 Hepatomegaly, not elsewhere classified; I10 Essential (primary) hypertension; J02.9 Acute pharyngitis, unspecified; R53.1 Weakness; M1A.9XX0 Chronic gout, unspecified, without tophus (tophi); R07.89 Other chest pain; I27.20 Pulmonary hypertension, unspecified; R94.31 Abnormal electrocardiogram [ECG] [EKG]; R51.9 Headache, unspecified; R79.89 Other specified abnormal findings of blood chemistry; R10.31 Right lower quadrant pain; R06.02 Shortness of breath; F51.01 Primary insomnia; I95.89 Other hypotension

== ENCOUNTER 2023-09-30 16:23 | Observation (INO) ==
[2023-09-30 18:24] VITALS: BMI 35.2
[2023-09-30 18:29] LABS: BASOPHILS # (AUTO) 0.1 X10^3/uL (0.0-0.1); BASOPHILS % (AUTO) 0.8 % (0.2-1.0); EOSINOPHILS # (AUTO) 0.1 x10^3/uL (0.0-0.2); EOSINOPHILS % (AUTO) 1.2 % (0.9-2.9); HEMOGLOBIN 13.1 g/dL (12.0-16.0); LYMPHOCYTES # (AUTO) 2.7 X10^3/uL (1.3-2.9); LYMPHOCYTES % (AUTO) 41.1 % (21.0-51.0); MEAN CORPUSCULAR HEMOGLOBIN 27.6 pg (27.0-34.0); MEAN CORPUSCULAR HGB CONC 32.8 g/dL (33.0-35.0); MEAN CORPUSCULAR VOLUME 84.3 fL (80.0-100.0); MONOCYTES # (AUTO) 0.6 x10^3/uL (0.3-0.8); MONOCYTES % (AUTO) 8.4 % (0.0-13.0); NEUTROPHILS # (AUTO) 3.2 x10^3/uL (2.2-4.8); NEUTROPHILS % (AUTO) 48.5 % (42.0-75.0); PLATELET COUNT 298 X10^3/uL (150.0-450.0); RED BLOOD COUNT 4.75 X10^6/uL (3.5-5.4); RED CELL DISTRIBUTION WIDTH 16.3 % (11.6-16.5); WHITE BLOOD COUNT 6.6 X10^3/uL (3.6-10.0)
[2023-09-30 18:42] LABS: ALANINE AMINOTRANSFERASE 15 Units/L (12-78); ALBUMIN 3.6 g/dL (3.4-5.0); ALKALINE PHOSPHATASE 133 Units/L (46-116); ASPARTATE AMINO TRANSFERASE 10 Units/L (15-37); BLOOD UREA NITROGEN 10 mg/dL (7-18); CALCIUM 9.1 mg/dL (8.5-10.1); CARBON DIOXIDE 29.8 mmol/L (21-32); CHLORIDE 101 mmol/L (98-107); CREATININE 0.81 mg/dL (0.55-1.02); GLUCOSE 99 mg/dL (65-99); POTASSIUM 3.3 mmol/L (3.5-5.1); SODIUM 137 mmol/L (136-145); TOTAL PROTEIN 8.2 g/dL (6.4-8.2); eGFR NON BLACK RACES > 60 (>60)
[2023-09-30] MEDS: D5 1/2 NS 1,000 ML 1,000 ML IV SCH (20:01)
[2023-09-30] MEDS: PROTONIX INJ 40 MG VIAL IVP SCH (20:02)
[2023-09-30] MEDS: DIFLUCAN 200 MG IV PREMIX* 200 MG/100 ML BAG IV SCH (20:02)
[2023-09-30] MEDS: TYLENOL 325 MG TAB PO PRN (20:03)
[2023-10-01] MEDS: D5 1/2 NS 1,000 ML 1,000 ML IV SCH ×4 (04:00→18:12)
[2023-10-01 06:56] LABS: BASOPHILS # (AUTO) 0.1 X10^3/uL (0.0-0.1); EOSINOPHILS # (AUTO) 0.1 x10^3/uL (0.0-0.2); EOSINOPHILS % (AUTO) 2.3 % (0.9-2.9); HEMATOCRIT 37.1 % (36.0-47.0); HEMOGLOBIN 12.2 g/dL (12.0-16.0); LYMPHOCYTES # (AUTO) 3.1 X10^3/uL (1.3-2.9); LYMPHOCYTES % (AUTO) 52.6 % (21.0-51.0); MEAN CORPUSCULAR HEMOGLOBIN 27.6 pg (27.0-34.0); MEAN CORPUSCULAR HGB CONC 32.9 g/dL (33.0-35.0); MEAN CORPUSCULAR VOLUME 83.9 fL (80.0-100.0); MEAN PLATELET VOLUME 9.3 fL (7.4-11.0); MONOCYTES # (AUTO) 0.5 x10^3/uL (0.3-0.8); MONOCYTES % (AUTO) 8.2 % (0.0-13.0); NEUTROPHILS # (AUTO) 2.1 x10^3/uL (2.2-4.8); NEUTROPHILS % (AUTO) 35.9 % (42.0-75.0); PLATELET COUNT 197 X10^3/uL (150.0-450.0); RED BLOOD COUNT 4.43 X10^6/uL (3.5-5.4); RED CELL DISTRIBUTION WIDTH 16.1 % (11.6-16.5); WHITE BLOOD COUNT 5.8 X10^3/uL (3.6-10.0)
[2023-10-01 06:58] LABS: ALANINE AMINOTRANSFERASE 13 Units/L (12-78); ALBUMIN 3.1 g/dL (3.4-5.0); ALKALINE PHOSPHATASE 114 Units/L (46-116); ASPARTATE AMINO TRANSFERASE 10 Units/L (15-37); BLOOD UREA NITROGEN 8 mg/dL (7-18); CALCIUM 8.4 mg/dL (8.5-10.1); CARBON DIOXIDE 27.7 mmol/L (21-32); CHLORIDE 104 mmol/L (98-107); COR CA(FOR HYPOALB) 9.1 mg/dL (8.5-10.1); CREATININE 0.77 mg/dL (0.55-1.02); GLUCOSE 106 mg/dL (65-99); POTASSIUM 3.8 mmol/L (3.5-5.1); SODIUM 137 mmol/L (136-145); TOTAL PROTEIN 7.1 g/dL (6.4-8.2); eGFR NON BLACK RACES > 60 (>60)
[2023-10-01] MEDS: DIFLUCAN 200 MG IV PREMIX* 200 MG/100 ML BAG IV SCH (08:32)
[2023-10-01] MEDS: PROTONIX INJ 40 MG VIAL IVP SCH ×2 (08:32→20:47)
[2023-10-01] MEDS: AMBIEN PO PRN (21:50)
[2023-10-01] MEDS: NYSTATIN SUSP PO SCH (21:50)
[2023-10-02] MEDS: D5 1/2 NS 1,000 ML 1,000 ML IV SCH ×6 (00:30→22:44)
[2023-10-02 06:14] LABS: BASOPHILS # (AUTO) 0.1 X10^3/uL (0.0-0.1); BASOPHILS % (AUTO) 0.9 % (0.2-1.0); EOSINOPHILS # (AUTO) 0.2 x10^3/uL (0.0-0.2); EOSINOPHILS % (AUTO) 3.5 % (0.9-2.9); HEMATOCRIT 35.1 % (36.0-47.0); HEMOGLOBIN 11.7 g/dL (12.0-16.0); LYMPHOCYTES # (AUTO) 2.9 X10^3/uL (1.3-2.9); LYMPHOCYTES % (AUTO) 46.9 % (21.0-51.0); MEAN CORPUSCULAR HEMOGLOBIN 27.8 pg (27.0-34.0); MEAN CORPUSCULAR HGB CONC 33.5 g/dL (33.0-35.0); MEAN CORPUSCULAR VOLUME 83.2 fL (80.0-100.0); MEAN PLATELET VOLUME 10.7 fL (7.4-11.0); MONOCYTES # (AUTO) 0.6 x10^3/uL (0.3-0.8); MONOCYTES % (AUTO) 9.2 % (0.0-13.0); NEUTROPHILS # (AUTO) 2.5 x10^3/uL (2.2-4.8); NEUTROPHILS % (AUTO) 39.5 % (42.0-75.0); PLATELET COUNT 190 X10^3/uL (150.0-450.0); RED BLOOD COUNT 4.22 X10^6/uL (3.5-5.4); RED CELL DISTRIBUTION WIDTH 15.9 % (11.6-16.5); WHITE BLOOD COUNT 6.2 X10^3/uL (3.6-10.0)
[2023-10-02 06:32] LABS: ALANINE AMINOTRANSFERASE 13 Units/L (12-78); ALBUMIN 2.9 g/dL (3.4-5.0); ALKALINE PHOSPHATASE 108 Units/L (46-116); ASPARTATE AMINO TRANSFERASE 8 Units/L (15-37); BLOOD UREA NITROGEN 8 mg/dL (7-18); CALCIUM 8.5 mg/dL (8.5-10.1); CARBON DIOXIDE 26.3 mmol/L (21-32); CHLORIDE 106 mmol/L (98-107); COR CA(FOR HYPOALB) 9.4 mg/dL (8.5-10.1); CREATININE 0.76 mg/dL (0.55-1.02); GLUCOSE 95 mg/dL (65-99); MAGNESIUM 1.9 mg/dL (2.0-2.9); POTASSIUM 3.8 mmol/L (3.5-5.1); SODIUM 138 mmol/L (136-145); TOTAL PROTEIN 6.8 g/dL (6.4-8.2); eGFR NON BLACK RACES > 60 (>60)
[2023-10-02] MEDS ORDERED: CONSULT PHARMACY - POTASSIUM & MAGNESIUM XX SCH (07:00)
[2023-10-02] MEDS: PROTONIX INJ 40 MG VIAL IVP SCH ×2 (08:20→21:27)
[2023-10-02] MEDS: NYSTATIN SUSP PO SCH ×4 (08:20→21:25)
[2023-10-02] MEDS: DIFLUCAN 200 MG IV PREMIX* 200 MG/100 ML BAG IV SCH (08:20)
[2023-10-02] MEDS ORDERED: MAG-OX TAB PO SCH (09:00)
[2023-10-02] MEDS ORDERED: K-DUR TAB 20 MEQ PO SCH (09:00)
[2023-10-02] MEDS: TORADOL 30 MG VIAL IVP PRN (11:52)
--- NOTE | 2023-10-02 12:15 | DR.PROGNOT ---
HOSPITAL PROGRESS NOTE Progress Note for Day of: Progress Note Date: 10/02/23 Chief Complaint Chief Complaint: still having difficulty swallowing , no vomiting today . c/o severe headache and difficulty sleeping .. on IV Diflucan and IVF , normal CBC and Lytes . afebrile . Past Medical Family Social History Past Med/Fam/Surg Hx: No changes since H&P Allergies: Allergies morphine Adverse Reaction (Mild, Verified 08/25/23 14:59) itching Vital Signs Vital Signs: Vital Signs Temperature 97.9 F Pulse Rate [Brachial] 66 Respiratory Rate 20 Respiratory Rate 18 Blood Pressure [Left Arm] 128/78 O2 Sat by Pulse Oximetry 96 Physical Exam Oriented: Normal Eyes: Normal Nose: Normal Throat: Red and Exudate (congestion , thrush ,.) GI:Auscultation: Normal GI: Tenderness: Normal Speech Pattern: Clear and Appropriate Laboratory and Diagnostics 10/02/23 05:15 10/02/23 05:15 Labs: Laboratory WBC 6.2 X10^3/uL (3.6-10.0) 10/02/23 05:15 RBC 4.22 X10^6/uL (3.5-5.4) 10/02/23 05:15 Hgb 11.7 g/dL (12.0-16.0) L 10/02/23 05:15 Hct 35.1 % (36.0-47.0) L 10/02/23 05:15 MCV 83.2 fL (80.0-100.0) 10/02/23 05:15 MCH 27.8 pg (27.0-34.0) 10/02/23 05:15 MCHC 33.5 g/dL (33.0-35.0) 10/02/23 05:15 RDW 15.9 % (11.6-16.5) 10/02/23 05:15 Plt Count 190 X10^3/uL (150.0-450.0) 10/02/23 05:15 MPV 10.7 fL (7.4-11.0) 10/02/23 05:15 Neut % (Auto) 39.5 % (42.0-75.0) L 10/02/23 05:15 Lymph % (Auto) 46.9 % (21.0-51.0) 10/02/23 05:15 [place] % (Auto) 9.2 % (0.0-13.0) 10/02/23 05:15 Eos % (Auto) 3.5 % (0.9-2.9) H 10/02/23 05:15 Baso % (Auto) 0.9 % (0.2-1.0) 10/02/23 05:15 Neut # (Auto) 2.5 x10^3/uL (2.2-4.8) 10/02/23 05:15 Lymph # (Auto) 2.9 X10^3/uL (1.3-2.9) 10/02/23 05:15 [place] # (Auto) 0.6 x10^3/uL (0.3-0.8) 10/02/23 05:15 Eos # (Auto) 0.2 x10^3/uL (0.0-0.2) 10/02/23 05:15 Baso # (Auto) 0.1 X10^3/uL (0.0-0.1) 10/02/23 05:15 Absolute Nucleated RBC 0.1 /100WBC 10/02/23 05:15 Sodium 138 mmol/L (136-145) 10/02/23 05:15 Corrected Sodium TNP 10/02/23 05:15 Potassium 3.8 mmol/L (3.5-5.1) 10/02/23 05:15 Chloride 106 mmol/L (98-107) 10/02/23 05:15 Carbon Dioxide 26.3 mmol/L (21-32) 10/02/23 05:15 BUN 8 mg/dL (7-18) 10/02/23 05:15 Creatinine 0.76 mg/dL (0.55-1.02) 10/02/23 05:15 Est GFR (MDRD) Af Amer > 60 (>60) 10/02/23 05:15 Est GFR (MDRD) Non-Af > 60 (>60) 10/02/23 05:15 Glucose 95 mg/dL (65-99) 10/02/23 05:15 Calcium 8.5 mg/dL (8.5-10.1) 10/02/23 05:15 Corrected Calcium 9.4 mg/dL (8.5-10.1) 10/02/23 05:15 Magnesium 1.9 mg/dL (2.0-2.9) L 10/02/23 05:15 Total Bilirubin 0.30 mg/dL (0.2-1.0) 10/02/23 05:15 AST 8 Units/L (15-37) L 10/02/23 05:15 ALT 13 Units/L (12-78) 10/02/23 05:15 Alkaline Phosphatase 108 Units/L (46-116) 10/02/23 05:15 Total Protein 6.8 g/dL (6.4-8.2) 10/02/23 05:15 Albumin 2.9 g/dL (3.4-5.0) L 10/02/23 05:15 Globulin 3.9 g/dL (2.5-4.5) 10/02/23 05:15 Albumin/Globulin Ratio 0.7 Ratio (1.1-2.1) L 10/02/23 05:15 Assessment and Plan 1: oral and upper GI Candidiasis . same plan 2: severe dysphagia . for neck CT . IVF
[2023-10-02] MEDS: TYLENOL 325 MG TAB PO PRN (13:26)
--- NOTE | 2023-10-02 15:02 | RAD ---
EXAM:X-ray SOFT TISSUE NECK, two viewsHISTORY:DYSPHAGIA -COMPARISON:None.FINDINGS:No tonsillar enlargement is seen. No prevertebral soft tissue swelling is seen. Epiglottis is normal in size.The there is probable CHF and pulmonary edema in the chest. Moderate anterior osteophytes are seen at C5-6 and C6-7. Cervical lordosis is preserved.IMPRESSION:Moderate anterior osteophytes are seen in the lower cervical spine.Probable CHF and pulmonary edema are present.THIS IS AN ELECTRONICALLY VERIFIED FINAL REPORT10/02/2023 2:59 PM - Electronically signed by Archie Amaya MD
[2023-10-02] MEDS: ATIVAN INJ 2 MG VIAL IVP SCH (21:27)
[2023-10-02] MEDS: AMBIEN PO PRN (23:15)
[2023-10-03] MEDS: D5 1/2 NS 1,000 ML 1,000 ML IV SCH ×5 (03:41→22:34)
[2023-10-03 06:38] LABS: BASOPHILS % (AUTO) 0.6 % (0.2-1.0); EOSINOPHILS # (AUTO) 0.3 x10^3/uL (0.0-0.2); HEMOGLOBIN 11.9 g/dL (12.0-16.0); LYMPHOCYTES # (AUTO) 2.7 X10^3/uL (1.3-2.9); LYMPHOCYTES % (AUTO) 39.2 % (21.0-51.0); MEAN CORPUSCULAR HEMOGLOBIN 27.6 pg (27.0-34.0); MEAN CORPUSCULAR HGB CONC 33.1 g/dL (33.0-35.0); MEAN CORPUSCULAR VOLUME 83.6 fL (80.0-100.0); MEAN PLATELET VOLUME 9.2 fL (7.4-11.0); MONOCYTES # (AUTO) 0.6 x10^3/uL (0.3-0.8); MONOCYTES % (AUTO) 8.9 % (0.0-13.0); NEUTROPHILS # (AUTO) 3.2 x10^3/uL (2.2-4.8); NEUTROPHILS % (AUTO) 46.3 % (42.0-75.0); PLATELET COUNT 258 X10^3/uL (150.0-450.0); RED BLOOD COUNT 4.31 X10^6/uL (3.5-5.4); RED CELL DISTRIBUTION WIDTH 16.3 % (11.6-16.5); WHITE BLOOD COUNT 6.9 X10^3/uL (3.6-10.0)
[2023-10-03 07:03] LABS: ALANINE AMINOTRANSFERASE 13 Units/L (12-78); ALKALINE PHOSPHATASE 112 Units/L (46-116); ASPARTATE AMINO TRANSFERASE 11 Units/L (15-37); BLOOD UREA NITROGEN 6 mg/dL (7-18); CALCIUM 8.3 mg/dL (8.5-10.1); CHLORIDE 106 mmol/L (98-107); COR CA(FOR HYPOALB) 9.1 mg/dL (8.5-10.1); CREATININE 0.66 mg/dL (0.55-1.02); GLUCOSE 93 mg/dL (65-99); POTASSIUM 3.4 mmol/L (3.5-5.1); SODIUM 139 mmol/L (136-145); TOTAL PROTEIN 6.9 g/dL (6.4-8.2); eGFR NON BLACK RACES > 60 (>60)
[2023-10-03] MEDS ORDERED: CONSULT PHARMACY - POTASSIUM & MAGNESIUM XX SCH (08:00)
[2023-10-03] MEDS ORDERED: MILK OF MAGNESIA PO ONE (08:12)
[2023-10-03] MEDS: DIFLUCAN 200 MG IV PREMIX* 200 MG/100 ML BAG IV SCH (08:30)
[2023-10-03] MEDS: NYSTATIN SUSP PO SCH ×4 (08:30→20:31)
[2023-10-03] MEDS: PROTONIX INJ 40 MG VIAL IVP SCH ×2 (08:30→20:31)
--- NOTE | 2023-10-03 08:41 | DR.PROGNOT ---
HOSPITAL PROGRESS NOTE Progress Note for Day of: Progress Note Date: 10/03/23 Chief Complaint Chief Complaint: feeling better today . still having difficulty swallowing .. neck CT was not done .. normall CBC and CMP . afebrile .. Past Medical Family Social History Past Med/Fam/Surg Hx: No changes since H&P Allergies: Allergies morphine Adverse Reaction (Mild, Verified 08/25/23 14:59) itching Vital Signs Vital Signs: Vital Signs Temperature 97.3 F Temperature 98.0 F Pulse Rate [Brachial] 79 Pulse Rate [Brachial] 76 Respiratory Rate 18 Respiratory Rate 18 Blood Pressure [Left Arm] 118/72 Blood Pressure [Left Arm] 130/64 O2 Sat by Pulse Oximetry 94 O2 Sat by Pulse Oximetry 96 Physical Exam Oriented: Normal Eyes: Normal Nose: Normal Throat: Red and Exudate (congestion , thrush ,.) Respiratory: Normal Cardiovascular: Normal GI:Auscultation: Normal GI: Tenderness: Normal Speech Pattern: Clear and Appropriate Laboratory and Diagnostics 10/03/23 05:46 10/03/23 05:46 Labs: Laboratory WBC 6.9 X10^3/uL (3.6-10.0) 10/03/23 05:46 RBC 4.31 X10^6/uL (3.5-5.4) 10/03/23 05:46 Hgb 11.9 g/dL (12.0-16.0) L 10/03/23 05:46 Hct 36.0 % (36.0-47.0) 10/03/23 05:46 MCV 83.6 fL (80.0-100.0) 10/03/23 05:46 MCH 27.6 pg (27.0-34.0) 10/03/23 05:46 MCHC 33.1 g/dL (33.0-35.0) 10/03/23 05:46 RDW 16.3 % (11.6-16.5) 10/03/23 05:46 Plt Count 258 X10^3/uL (150.0-450.0) 10/03/23 05:46 MPV 9.2 fL (7.4-11.0) 10/03/23 05:46 Neut % (Auto) 46.3 % (42.0-75.0) 10/03/23 05:46 Lymph % (Auto) 39.2 % (21.0-51.0) 10/03/23 05:46 [place] % (Auto) 8.9 % (0.0-13.0) 10/03/23 05:46 Eos % (Auto) 5.0 % (0.9-2.9) H 10/03/23 05:46 Baso % (Auto) 0.6 % (0.2-1.0) 10/03/23 05:46 Neut # (Auto) 3.2 x10^3/uL (2.2-4.8) 10/03/23 05:46 Lymph # (Auto) 2.7 X10^3/uL (1.3-2.9) 10/03/23 05:46 [place] # (Auto) 0.6 x10^3/uL (0.3-0.8) 10/03/23 05:46 Eos # (Auto) 0.3 x10^3/uL (0.0-0.2) H 10/03/23 05:46 Baso # (Auto) 0.0 X10^3/uL (0.0-0.1) 10/03/23 05:46 Absolute Nucleated RBC 0.1 /100WBC 10/03/23 05:46 Sodium 139 mmol/L (136-145) 10/03/23 05:46 Corrected Sodium TNP 10/03/23 05:46 Potassium 3.4 mmol/L (3.5-5.1) L 10/03/23 05:46 Chloride 106 mmol/L (98-107) 10/03/23 05:46 Carbon Dioxide 27.0 mmol/L (21-32) 10/03/23 05:46 BUN 6 mg/dL (7-18) L 10/03/23 05:46 Creatinine 0.66 mg/dL (0.55-1.02) 10/03/23 05:46 Est GFR (MDRD) Af Amer > 60 (>60) 10/03/23 05:46 Est GFR (MDRD) Non-Af > 60 (>60) 10/03/23 05:46 Glucose 93 mg/dL (65-99) 10/03/23 05:46 Calcium 8.3 mg/dL (8.5-10.1) L 10/03/23 05:46 Corrected Calcium 9.1 mg/dL (8.5-10.1) 10/03/23 05:46 Magnesium 2.0 mg/dL (2.0-2.9) 10/03/23 05:46 Total Bilirubin 0.20 mg/dL (0.2-1.0) 10/03/23 05:46 AST 11 Units/L (15-37) L 10/03/23 05:46 ALT 13 Units/L (12-78) 10/03/23 05:46 Alkaline Phosphatase 112 Units/L (46-116) 10/03/23 05:46 Total Protein 6.9 g/dL (6.4-8.2) 10/03/23 05:46 Albumin 3.0 g/dL (3.4-5.0) L 10/03/23 05:46 Globulin 3.9 g/dL (2.5-4.5) 10/03/23 05:46 Albumin/Globulin Ratio 0.8 Ratio (1.1-2.1) L 10/03/23 05:46 Assessment and Plan 1: dysphagia with oral and esophageal candidiasis. on IV Diflucan .. 2: severe esophagitis . to obtain C&S . IVF
[2023-10-03] MEDS ORDERED: POTASSIUM CHLORIDE LIQ PO SCH (09:00)
[2023-10-03] MEDS ORDERED: K-DUR TAB 20 MEQ PO SCH (09:00)
[2023-10-03] MEDS: TORADOL 30 MG VIAL IVP PRN ×2 (09:15→16:41)
[2023-10-03] MEDS: ATIVAN INJ 2 MG VIAL IVP SCH (20:36)
[2023-10-03] MEDS: AMBIEN PO PRN (21:33)
[2023-10-04] MEDS: D5 1/2 NS 1,000 ML 1,000 ML IV SCH ×5 (02:56→23:28)
[2023-10-04 06:48] LABS: HEMOGLOBIN 11.9 g/dL (12.0-16.0); LYMPHOCYTES # (AUTO) 1.8 X10^3/uL (1.3-2.9); MONOCYTES # (AUTO) 0.6 x10^3/uL (0.3-0.8)
[2023-10-04 07:01] LABS: ALANINE AMINOTRANSFERASE 14 Units/L (12-78); ALBUMIN 2.8 g/dL (3.4-5.0); ALKALINE PHOSPHATASE 108 Units/L (46-116); ASPARTATE AMINO TRANSFERASE 8 Units/L (15-37); BLOOD UREA NITROGEN 8 mg/dL (7-18); CALCIUM 8.3 mg/dL (8.5-10.1); CARBON DIOXIDE 27.6 mmol/L (21-32); CHLORIDE 106 mmol/L (98-107); COR CA(FOR HYPOALB) 9.3 mg/dL (8.5-10.1); CREATININE 0.73 mg/dL (0.55-1.02); GLUCOSE 100 mg/dL (65-99); POTASSIUM 3.8 mmol/L (3.5-5.1); SODIUM 138 mmol/L (136-145); TOTAL PROTEIN 6.6 g/dL (6.4-8.2); eGFR NON BLACK RACES > 60 (>60)
[2023-10-04 07:08] LABS: BASOPHILS % (AUTO) 0.5 % (0.2-1.0); EOSINOPHILS # (AUTO) 0.4 x10^3/uL (0.0-0.2); EOSINOPHILS % (AUTO) 6.2 % (0.9-2.9); HEMATOCRIT 36.3 % (36.0-47.0); LYMPHOCYTES % (AUTO) 29.9 % (21.0-51.0); MEAN CORPUSCULAR HEMOGLOBIN 27.4 pg (27.0-34.0); MEAN CORPUSCULAR HGB CONC 32.9 g/dL (33.0-35.0); MEAN CORPUSCULAR VOLUME 83.3 fL (80.0-100.0); MEAN PLATELET VOLUME 9.5 fL (7.4-11.0); MONOCYTES % (AUTO) 9.7 % (0.0-13.0); NEUTROPHILS # (AUTO) 3.2 x10^3/uL (2.2-4.8); NEUTROPHILS % (AUTO) 53.7 % (42.0-75.0); PLATELET COUNT 181 X10^3/uL (150.0-450.0); RED BLOOD COUNT 4.36 X10^6/uL (3.5-5.4); RED CELL DISTRIBUTION WIDTH 16.1 % (11.6-16.5)
[2023-10-04] MEDS: DIFLUCAN 200 MG IV PREMIX* 200 MG/100 ML BAG IV SCH (09:40)
[2023-10-04] MEDS: NYSTATIN SUSP PO SCH ×4 (09:40→21:12)
[2023-10-04] MEDS: PROTONIX INJ 40 MG VIAL IVP SCH ×2 (09:40→21:13)
[2023-10-04] MEDS: TORADOL 30 MG VIAL IVP PRN (13:07)
--- NOTE | 2023-10-04 13:31 | DR.PROGNOT ---
HOSPITAL PROGRESS NOTE Progress Note for Day of: Progress Note Date: 10/04/23 Chief Complaint Chief Complaint: feeling better today . still having difficulty swallowing .. c/o headache .. normall CBC and CMP . afebrile .. Past Medical Family Social History Past Med/Fam/Surg Hx: No changes since H&P Allergies: Allergies morphine Adverse Reaction (Mild, Verified 08/25/23 14:59) itching Vital Signs Vital Signs: Vital Signs Temperature 98.4 F Temperature 97.1 F Pulse Rate [Brachial] 61 Pulse Rate [Brachial] 70 Respiratory Rate 18 Respiratory Rate 18 Respiratory Rate 18 Blood Pressure [Left Arm] 152/74 Blood Pressure [Left Arm] 140/66 O2 Sat by Pulse Oximetry 95 O2 Sat by Pulse Oximetry 93 Physical Exam Oriented: Normal Eyes: Normal Nose: Normal Throat: Red and Exudate (congestion , thrush ,.) Respiratory: Normal Cardiovascular: Normal GI:Auscultation: Normal GI: Tenderness: Normal Speech Pattern: Clear and Appropriate Laboratory and Diagnostics 10/04/23 06:00 10/04/23 06:00 Labs: 10/03/23 16:35 Throat Throat Culture - Preliminary Laboratory WBC 6.0 X10^3/uL (3.6-10.0) 10/04/23 06:00 RBC 4.36 X10^6/uL (3.5-5.4) 10/04/23 06:00 Hgb 11.9 g/dL (12.0-16.0) L 10/04/23 06:00 Hct 36.3 % (36.0-47.0) 10/04/23 06:00 MCV 83.3 fL (80.0-100.0) 10/04/23 06:00 MCH 27.4 pg (27.0-34.0) 10/04/23 06:00 MCHC 32.9 g/dL (33.0-35.0) L 10/04/23 06:00 RDW 16.1 % (11.6-16.5) 10/04/23 06:00 Plt Count 181 X10^3/uL (150.0-450.0) 10/04/23 06:00 MPV 9.5 fL (7.4-11.0) 10/04/23 06:00 Neut % (Auto) 53.7 % (42.0-75.0) 10/04/23 06:00 Lymph % (Auto) 29.9 % (21.0-51.0) 10/04/23 06:00 [place] % (Auto) 9.7 % (0.0-13.0) 10/04/23 06:00 Eos % (Auto) 6.2 % (0.9-2.9) H 10/04/23 06:00 Baso % (Auto) 0.5 % (0.2-1.0) 10/04/23 06:00 Neut # (Auto) 3.2 x10^3/uL (2.2-4.8) 10/04/23 06:00 Lymph # (Auto) 1.8 X10^3/uL (1.3-2.9) 10/04/23 06:00 [place] # (Auto) 0.6 x10^3/uL (0.3-0.8) 10/04/23 06:00 Eos # (Auto) 0.4 x10^3/uL (0.0-0.2) H 10/04/23 06:00 Baso # (Auto) 0.0 X10^3/uL (0.0-0.1) 10/04/23 06:00 Absolute Nucleated RBC 0.0 /100WBC 10/04/23 06:00 Sodium 138 mmol/L (136-145) 10/04/23 06:00 Corrected Sodium TNP 10/04/23 06:00 Potassium 3.8 mmol/L (3.5-5.1) 10/04/23 06:00 Chloride 106 mmol/L (98-107) 10/04/23 06:00 Carbon Dioxide 27.6 mmol/L (21-32) 10/04/23 06:00 BUN 8 mg/dL (7-18) 10/04/23 06:00 Creatinine 0.73 mg/dL (0.55-1.02) 10/04/23 06:00 Est GFR (MDRD) Af Amer > 60 (>60) 10/04/23 06:00 Est GFR (MDRD) Non-Af > 60 (>60) 10/04/23 06:00 Glucose 100 mg/dL (65-99) H 10/04/23 06:00 Calcium 8.3 mg/dL (8.5-10.1) L 10/04/23 06:00 Corrected Calcium 9.3 mg/dL (8.5-10.1) 10/04/23 06:00 Magnesium 2.0 mg/dL (2.0-2.9) 10/03/23 05:46 Total Bilirubin 0.30 mg/dL (0.2-1.0) 10/04/23 06:00 AST 8 Units/L (15-37) L 10/04/23 06:00 ALT 14 Units/L (12-78) 10/04/23 06:00 Alkaline Phosphatase 108 Units/L (46-116) 10/04/23 06:00 Total Protein 6.6 g/dL (6.4-8.2) 10/04/23 06:00 Albumin 2.8 g/dL (3.4-5.0) L 10/04/23 06:00 Globulin 3.8 g/dL (2.5-4.5) 10/04/23 06:00 Albumin/Globulin Ratio 0.7 Ratio (1.1-2.1) L 10/04/23 06:00 Assessment and Plan 1: dysphagia with oral and esophageal candidiasis. on IV Diflucan .. 2: severe esophagitis . to obtain C&S . IVF
--- NOTE | 2023-10-04 17:09 | EKG ---
Test Reason : chest pain Blood Pressure : */* mmHG Vent. Rate : 56 BPM Atrial Rate : 56 BPM P-R Int : 166 ms QRS Dur : 80 ms QT Int : 454 ms P-R-T Axes : 32 6 47 degrees QTc Int : 438 ms Sinus bradycardia Otherwise normal ECG When compared with ECG of 04-AUG-2023 16:35, Vent. rate has decreased BY 27 BPM QRS axis shifted right Confirmed by Artur Martinez ([id number]) on 10/05/2023 8:05:42 AM Referred By: Confirmed By: Artur Martinez
[2023-10-04] MEDS ORDERED: NORCO 5/325 MG TAB PO PRN (17:15)
[2023-10-04] MEDS: AMBIEN PO PRN (21:12)
[2023-10-04] MEDS: ATIVAN INJ 2 MG VIAL IVP SCH (21:13)
[2023-10-05] MEDS: D5 1/2 NS 1,000 ML 1,000 ML IV SCH ×3 (02:16→10:05)
[2023-10-05 04:44] VITALS: RESP 20
--- NOTE | 2023-10-05 06:17 | RAD ---
EXAM:Portable chestHISTORY:Chest painCOMPARISON:07/27/2023FINDINGS:Heart size is normal. Rosaura are normal. Lung hayden are clear. No pleural effusions are identified. Bony thorax is unremarkable.IMPRESSION:No significant abnormality identifiedTHIS IS AN ELECTRONICALLY VERIFIED FINAL REPORT10/05/2023 6:13 AM - Electronically signed by James Claros MD
[2023-10-05 06:18] LABS: BASOPHILS % (AUTO) 0.6 % (0.2-1.0); EOSINOPHILS # (AUTO) 0.4 x10^3/uL (0.0-0.2); EOSINOPHILS % (AUTO) 5.1 % (0.9-2.9); HEMOGLOBIN 12.1 g/dL (12.0-16.0); LYMPHOCYTES # (AUTO) 2.4 X10^3/uL (1.3-2.9); LYMPHOCYTES % (AUTO) 34.5 % (21.0-51.0); MEAN CORPUSCULAR HEMOGLOBIN 27.6 pg (27.0-34.0); MEAN CORPUSCULAR HGB CONC 32.8 g/dL (33.0-35.0); MEAN CORPUSCULAR VOLUME 84.1 fL (80.0-100.0); MEAN PLATELET VOLUME 10.1 fL (7.4-11.0); MONOCYTES # (AUTO) 0.5 x10^3/uL (0.3-0.8); MONOCYTES % (AUTO) 7.5 % (0.0-13.0); NEUTROPHILS # (AUTO) 3.7 x10^3/uL (2.2-4.8); NEUTROPHILS % (AUTO) 52.3 % (42.0-75.0); PLATELET COUNT 171 X10^3/uL (150.0-450.0); RED BLOOD COUNT 4.39 X10^6/uL (3.5-5.4); RED CELL DISTRIBUTION WIDTH 16.1 % (11.6-16.5); WHITE BLOOD COUNT 7.1 X10^3/uL (3.6-10.0)
[2023-10-05 06:37] LABS: ALANINE AMINOTRANSFERASE 13 Units/L (12-78); ALBUMIN 2.8 g/dL (3.4-5.0); ALKALINE PHOSPHATASE 111 Units/L (46-116); ASPARTATE AMINO TRANSFERASE 9 Units/L (15-37); BLOOD UREA NITROGEN 8 mg/dL (7-18); CALCIUM 8.2 mg/dL (8.5-10.1); CARBON DIOXIDE 25.8 mmol/L (21-32); CHLORIDE 108 mmol/L (98-107); COR CA(FOR HYPOALB) 9.2 mg/dL (8.5-10.1); CREATININE 0.69 mg/dL (0.55-1.02); GLUCOSE 98 mg/dL (65-99); POTASSIUM 3.4 mmol/L (3.5-5.1); SODIUM 143 mmol/L (136-145); TOTAL PROTEIN 6.7 g/dL (6.4-8.2); eGFR NON BLACK RACES > 60 (>60)
[2023-10-05] MEDS ORDERED: CONSULT PHARMACY - POTASSIUM & MAGNESIUM XX SCH (07:00)
[2023-10-05] MEDS: NYSTATIN SUSP PO SCH ×2 (08:22→12:34)
[2023-10-05] MEDS: DIFLUCAN 200 MG IV PREMIX* 200 MG/100 ML BAG IV SCH (08:22)
[2023-10-05] MEDS: PROTONIX INJ 40 MG VIAL IVP SCH (08:22)
[2023-10-05] MEDS ORDERED: K-DUR TAB 20 MEQ PO SCH (09:00)
[2023-10-05 12:26] VITALS: BP 120/69; PULSE 80; TEMP 97.8; O2SAT 94
== END 2023-10-05 13:00 | disposition home or self-care (01) ==
LOC: MED/SURG
PROVIDERS: ADMIT Surgery; ATTEND Surgery
DX: R00.1 Bradycardia, unspecified; B37.89 Other sites of candidiasis; R11.2 Nausea with vomiting, unspecified; K21.00 Gastro-esophageal reflux disease with esophagitis, without bleeding; R13.11 Dysphagia, oral phase; R53.1 Weakness; R55 Syncope and collapse; M19.90 Unspecified osteoarthritis, unspecified site; R51.9 Headache, unspecified

== ENCOUNTER 2025-06-20 17:36 | Observation (INO) ==
[2025-06-20 17:59] VITALS: BMI 35.6
--- NOTE | 2025-06-20 18:20 | DR.CP ---
HPI Time Seen Time Seen by Provider: 06/20/25 17:40 PCP Primary Care Physician: Verona Clarke Complaint Chief Complaint Doctor Comments: 65-year-old female to ED from home POV with stating that she has chest pain feels like a hammer to the chest she also has feeling palpitations she also complains of shortness of breath fatigue and nausea since Thursday. At triage she had an episode of blank stare for approximately 2 minutes without answering questions at that time stroke alert was called and patient was sent to CT and teleneurology Was consulted. After this event she returned to normal mentation without any neurological signs. CT scan negativeFor acute findings teleneurology consultation does not recommend any active treatment at this time would recommend admission for TIA with MRI / MRA tomorrow Chief Complaint:: Patient ambulated to triage complains of intermittent "feels like a hammer to chest", she states when she lays down occasionally she feels like her heart beats real fast. She complains of occasional nausea, SOB, fatique and diaphoresis all started on Thursday. At this point she had a blank stare, unable to answer questions and became emotional. No obvious other deficit as she moved all extremities. Notified MD and Stroke alert activated. This lasted approximately 4 minutes and patient returned to normal mental status and did not remember this episode. COVID-19 Coronavirus risk:travel/contact w/high risk person: No Has patient experienced Coronavirus symptoms: No Source History Provided: Patient Mode of Arrival Mode of Arrival: Ambulatory Timing Onset of Chief Complaint: 06/16/25 PMH PMH Past Medical History: Yes Past Medical History: Arthritis, CHF, GERD and Hypertension Past Surgical History: Yes Surgical History: and Ortho Surgery Family History History of Family Medical Conditions: Yes Family Medical History: [place], Coronary Artery Disease, Heart Failure, Sudden Cardiac and Hypertension Social History Does patient currently use any type of tobacco product: No Have you used tobacco products in the last 12 months: No Type of Tobacco Use: None Does any household member use tobacco: No Alcohol Use: None Do you use any recreational Drugs:: No Lives With: Spouse Lives Where: Home Travel Risk Coronavirus risk:travel/contact w/high risk person: No Has patient experienced Coronavirus symptoms: No Infectious screening In the last 2 months have you had wt loss of >10#?: NO Have you had fever, night sweats or hemotysis?: No Have you traveled outside the country in the last 6 months?: No Isolation: Standard ROS Review of Systems Constitutional: No Symptoms Reported Eyes: No Symptoms Reported ENTM: No Symptoms Reported Respiratoy: No Symptoms Reported Cardiovascular: See HPI and Chest Pain Gastrointestinal/Abdominal: No Symptoms Reported Genitourinary: No Symptoms Reported Neurological: See HPI and Other (Absence seizure versus TIA episode at triage) Musculoskeletal: No Symptoms Reported Integumentary: No Symptoms Reported Hematologic/Lymphatic: No Symptoms Reported Endocrine: No Symptoms Reported Psychiatric: No Symptoms Reported All Other Systems: Reviewed and Negative (On Exam patient denies current chest pain just mild shortness of breath) PE Vitals Vitals: Vital Signs Temperature 98.6 F Pulse Rate 71 Pulse Rate 70 Pulse Rate 70 Pulse Rate 83 Respiratory Rate 16 Respiratory Rate 20 Respiratory Rate 12 Respiratory Rate 16 Blood Pressure 109/57 Blood Pressure 141/68 O2 Sat by Pulse Oximetry 100 O2 Sat by Pulse Oximetry 100 O2 Sat by Pulse Oximetry 100 O2 Sat by Pulse Oximetry 100 General Limitations: No Limitations General Appearance: Alert and In No Apparent Distress (Once brought back post CTPatient is back to normal state awake alert oriented x 3) Head Head Exam: Normal Inspection Eyes Eye exam: Normal Appearance ENT ENT Exam: Normal Exam Chest Chest Inspection: Normal Inspection Respiratory Respiratory Exam: Normal Lung Sounds Bilat Cardiovascular Cardiovascular Exam: Regular Rate and Normal Rhythm Pulse: Normal Edema: Normal Abdominal Exam Abdominal Exam: Normal Inspection (Obesity), Normal Bowel Sounds and Soft Extremities Extremities Exam: Normal Inspection Back Back Exam: Normal Inspection Neurologic Neurological Exam: Alert and Oriented X3 Psychiatric Psychiatric Exam: Normal Affect and Normal Mood Skin Skin Exam: Warm, Dry, Intact and Normal Color COURSE Treatment Treatment: Family reviewed findings. Discussed with neurologist who recommends admission for observation with MRI tomorrow. Discussed with Dr. Noriega who agrees to admission ROR Labs Reviewed 06/20/25 18:26 06/20/25 18:55 Laboratory: WBC 7.1 X10^3/uL (3.6-10.0) 06/20/25 18:26 RBC 4.66 X10^6/uL (3.5-5.4) 06/20/25 18: Hgb 13.3 g/dL (12.0-16.0) 06/20/25 18: Hct 40.3 % (36.0-47.0) 06/20/25 18: MCV 86.6 fL (80.0-100.0) 06/20/25 18: MCH 28.6 pg (27.0-34.0) 06/20/25 18: MCHC 33.0 g/dL (33.0-35.0) 06/20/25 18: RDW 18.6 % (11.6-16.5) H 06/20/25 18: Plt Count 324 X10^3/uL (150.0-450.0) 06/20/25 18: MPV 9.1 fL (7.4-11.0) 06/20/25 18: Neut % (Auto) 60.0 % (42.0-75.0) 06/20/25 18: Lymph % (Auto) 33.4 % (21.0-51.0) 06/20/25 18: [place] % (Auto) 4.0 % (0.0-13.0) 06/20/25 18: Eos % (Auto) 1.8 % (0.9-2.9) 06/20/25 18: Baso % (Auto) 0.8 % (0.2-1.0) 06/20/25 18: Neut # (Auto) 4.3 x10^3/uL (2.2-4.8) 06/20/25 18: Lymph # (Auto) 2.4 X10^3/uL (1.3-2.9) 06/20/25 18:26 [place] # (Auto) 0.3 x10^3/uL (0.3-0.8) 06/20/25 18: Eos # (Auto) 0.1 x10^3/uL (0.0-0.2) 06/20/25 18: Baso # (Auto) 0.1 X10^3/uL (0.0-0.1) 06/20/25 18: Absolute Nucleated RBC 0.2 /100WBC 06/20/25 18:26 PT 12.8 SECONDS (11.8-14.3) 06/20/25 18:55 INR Target Range - 06/20/25 18:55 INR 0.96 (0.8-1.3) 06/20/25 18:55 APTT 27.1 SECONDS (22.9-36.5) 06/20/25 18:55 PTT Comment - 06/20/25 18:55 Fibrinogen 385 mg/dL (239-489) 06/20/25 18:55 Sodium 143 mmol/L (136-145) 06/20/25 18:55 Corrected Sodium 144 mmol/L (136-145) 06/20/25 18:55 Potassium 3.1 mmol/L (3.5-5.1) L 06/20/25 18:55 Chloride 106 mmol/L (98-107) 06/20/25 18:55 Carbon Dioxide 28.8 mmol/L (21-32) 06/20/25 18:55 BUN 5 mg/dL (7-18) L 06/20/25 18:55 Creatinine 0.81 mg/dL (0.55-1.02) 06/20/25 18:55 Est GFR (MDRD) Af Amer > 60 (>60) 06/20/25 18:55 Est GFR (MDRD) Non-Af > 60 (>60) 06/20/25 18:55 Glucose 131 mg/dL (65-99) H 06/20/25 18:55 Calcium 8.9 mg/dL (8.5-10.1) 06/20/25 18:55 Corrected Calcium TNP 06/20/25 18:55 Total Bilirubin 0.30 mg/dL (0.2-1.0) 06/20/25 18:55 AST 18 Units/L (15-37) 06/20/25 18:55 ALT 19 Units/L (12-78) 06/20/25 18:55 Alkaline Phosphatase 101 Units/L (46-116) 06/20/25 18:55 Creatine Kinase 78 Units/L (26-192) 06/20/25 18:55 Troponin I High Sens 5.0 ng/L (4.0-60.0) 06/20/25 18:55 B-Natriuretic Peptide 34.0 pg/mL (0-79) 06/20/25 17:53 Total Protein 7.5 g/dL (6.4-8.2) 06/20/25 18:55 Albumin 3.5 g/dL (3.4-5.0) 06/20/25 18:55 Globulin 4.0 g/dL (2.5-4.5) 06/20/25 18:55 Albumin/Globulin Ratio 0.9 Ratio (1.1-2.1) L 06/20/25 18:55 Opioid Opioid Risk Tool Age (Jose box if 16-45): No History of Preadolescent Sexual Abuse: No Total: 0 Total Score Risk Category: Low Risk Copyright: Baltazar SUMMERS predicting aberrant behaviors Discharge Plan Diagnosis Discharge Problem: Brain TIA, Chest pain Discharge Plan Patient Disposition: 09 ADMITTED INPATIENT Condition: Stable Prescriptions: No Action esomeprazole magnesium 20 mg capsule,delayed release(DR/EC) 20 mg PO BID Qty: 60 0RF montelukast 10 mg tablet 10 mg PO QDAY metronidazole 500 mg tablet 500 mg PO BID Qty: 10 1RF Azo Vaginal Health Probiotic 5 billion cell capsule 1 cap PO .q day Qty: 90 1RF aspirin 81 mg tablet,delayed release (DR/EC) 81 mg PO QDAY doxycycline hyclate 100 mg capsule 100 mg PO BID Qty: 14 0RF Adempas 2.5 mg tablet 2.5 mg PO TID Opsumit 10 mg tablet 10 mg PO QDAY Uptravi 800 mcg tablet 800 mcg PO BID potassium chloride 10 mEq Tablet Extended Release 10 meq PO QDAY allopurinol 100 mg tablet 200 mg PO QDAY trazodone 100 mg tablet 100 mg PO QPM furosemide 20 mg tablet 20 mg PO BID fluticasone propionate 50 mcg/actuation spray,suspension 2 spray INTRANASAL BID levocetirizine 5 mg tablet 5 mg PO QDAY Health Concerns: Post Hospitalization: new medications and changes needed to prevent readmission or further decline. Pt educated and given instructions on all concerns. Plan of Treatment: Continue with present treatment and follow up plan. Pt is to keep follow up appointment as instructed and take medications as ordered. Follow ups/Referrals Follow ups/Referrals: Verona Clarke [Primary Care Provider, Unknown] - 3 days Instructions Print Language: DOMINICAN
[2025-06-20] MEDS: NS 1,000 ML IV 1,000 ML IV SCH (18:23)
--- NOTE | 2025-06-20 18:33 | EKG ---
Test Reason : stroke alert Blood Pressure : */* mmHG Vent. Rate : 70 BPM Atrial Rate : 70 BPM P-R Int : 166 ms QRS Dur : 82 ms QT Int : 398 ms P-R-T Axes : 65 -3 67 degrees QTc Int : 429 ms Normal sinus rhythm Low voltage QRS Borderline ECG When compared with ECG of 06-OCT-2024 16:35, No significant change was found Confirmed by Ld Randhawa MD ([id number]) on 06/21/2025 6:06:59 AM Referred By: Confirmed By: Ld Randhawa MD
--- NOTE | 2025-06-20 18:37 | TELESTROKE ---
[facility] Consult Date of Consult Date of Exam: 06/20/25 Time of Arrival to the ED: 17:36 Allergies Allergies Allergy/AdvReac Type Severity Reaction Status Date / Time morphine AdvReac Mild itching Verified 02/15/25 13:25 Vital Signs Vital Signs: Temp Pulse Resp BP Pulse Ox O2 Del Method 06/20/25 17:36 98.6 F 83 16 141/68 100 Room Air History of Present Illness History of Present Illness: [facility] Patient Name:Cece Stout Date of :1960 Identification Number: Date of Service:06/20/2025 17:49:36 Diagnosis:R29.818 - Transient neurological symptoms Impression: 65 y/o F with history of HTN, HLD, pulmonary hypertension, CHF, presenting to hospital initially for chest pain, generalized fatigue, and while in triage had episode of staring, disorientation, then sudden emotional outburst, patient without recollection of this occurring- lasted 4-5 minutes. Mild increase in heart rate during episode, but no significant hemodynamic change. At time of my assessment, patient is at baseline, NIHSS 2 for chronic right leg weakness. NCHCT did not show acute abnormalities. Given absence of severe, disabling deficits at time of my assessment, thrombolytic was not advised, and low clinical suspicion for LVO, so CTA not pursued. This episode raises concern for focal seizure with altered awareness, although TIA should also be considered. No hemodynamic change to suggest that this was episode of syncope. Recommend admission for monitoring and further evaluation. Our recommendations are outlined below. Recommendations: Stroke/Telemetry Floor Neuro Checks (Q4) Bedside Swallow Eval DVT Prophylaxis IV Fluids, Normal Saline Head of Bed 30 Degrees Euglycemia and Avoid Hyperthermia (PRN Acetaminophen) Initiate or continue Aspirin 81 MG daily Antihypertensives PRN if Blood pressure is greater than 220/120 or there is a concern for End organ damage/contraindications for permissive HTN. If blood pressure is greater than 220/120 give labetalol PO or IV or Vasotec IV with a goal of 15% reduction in BP during the first 24 hours. -MRI brain, MRA head/neck -TTE w/ bubble study -telemetry monitoring -lipid profile, A1C, TSH -metabolic/infectious work-up -routine EEG Sign Out: Discussed with Emergency Department Provider Advanced Imaging:Advanced Imaging Deferred because: Non-disabling symptoms as verified by the patient; no cortical signs so not consistent with LVO Metrics: Last Known Well: 06/20/2025 17:45:00 Dispatch Time: 06/20/2025 17:49:35 Initial Response Time: 06/20/2025 17:53:01Symptoms: transient alteration of awareness. Initial patient interaction: 06/20/2025 17:53:38 NIHSS Assessment Completed: 06/20/2025 18:14:00Patient is not a candidate for Thrombolytic. Thrombolytic Medical Decision: 06/20/2025 18:15:00Patient was not deemed candidate for Thrombolytic because of following reasons: Stroke severity too mild (non-disabling) . CT Head: I personally reviewed all the CT images that were available to me and it showed: no acute intracranial abnormalities Primary Provider Notified of Diagnostic Impression and Management Plan on: 06/20/2025 18:20:35 History of Present Illness:Patient is a 65 year old Female. Collateral information is provided by ER staff. Patient is also accompanied by her . She initially presented to ER with chest discomfort, along with generalized weakness and fatigue. While in triage, the patient experienced an episode where she had a blank stare on her face, could not answer questions appropriately, became emotional, started crying, and was unable to respond for approximately four to five minutes. During this episode, she maintained purposeful movement of her legs and arms, and her heart rate was slightly elevated but not tachycardic. When asked about the year during this episode, she incorrectly stated it was "1926." The patient's reports that she had experienced a similar episode in the past. They previously consulted a neurologist in [place] when these episodes first began, but no definitive diagnosis was established. The patient denies any prior diagnosis of seizures, epilepsy, TIA, or stroke. Currently, the patient is taking aspirin 81 mg daily. She is back to baseline at the time of my assessment, and she does not have any awareness that this episode occurred. Past Medical History: Hypertension There is no history of Stroke There is no history of Seizures Other PMH: pulmonary hypertension; CHF; chronic pain; syncope Medications: No Anticoagulant use Antiplatelet use:Yesaspirin 81 mg daily Reviewed EMR for current medications Allergies: Reviewed Social History: Smoking: No Alcohol Use: No Family History: There is no family history of premature cerebrovascular disease pertinent to this consultation ROS : 14 Points Review of Systems was performed and was negative except mentioned in HPI. Past Surgical History: There Is No Surgical History Contributory To Todays Visit Examination: BP(160/80),Pulse(80), 1A: Level of Consciousness - Alert; keenly responsive+ 0 1B: Ask Month and Age - Both Questions Right+ 0 1C: Blink Eyes & Squeeze Hands - Performs Both Tasks+ 0 2: Test Horizontal Extraocular Movements - Normal+ 0 3: Test Visual [place] - No Visual Loss+ 0 4: Test Facial Palsy (Use Grimace if Obtunded) - Normal symmetry+ 0 5A: Test Left Arm Motor Drift - No Drift for 10 Seconds+ 0 5B: Test Right Arm Motor Drift - No Drift for 10 Seconds+ 0 6A: Test Left Leg Motor Drift - No Drift for 5 Seconds+ 0 6B: Test Right Leg Motor Drift - Drift, hits bed+ 2 7: Test Limb Ataxia (FNF/Heel-Savage) - No Ataxia+ 0 8: Test Sensation - Normal; No sensory loss+ 0 9: Test Language/Aphasia - Normal; No aphasia+ 0 10: Test Dysarthria - Normal+ 0 11: Test Extinction/Inattention - No abnormality+ 0 NIHSS Score:2 NIHSS Free Text :reports chronic weakness of right leg, due to bad knee Pre-Morbid Modified [place] Scale:0 Points = No symptoms at all Spoke with :Dr. Gatica This consult was conducted in real time using interactive audio and video technology. Patient was informed of the technology being used for this visit and agreed to proceed. Patient located in hospital and provider located at home/office setting. Patient is being evaluated for possible acute neurologic impairment and high probability of imminent or life-threatening deterioration. I spent total of 45 minutes providing care to this patient, including time for face to face visit via telemedicine, review of medical records, imaging studies and discussion of findings with providers, the patient and/or family. Dr Garret Muñoz [facility] For Inpatient follow-up with [facility] physician please call [facility] at . As we are not an outpatient service for any post hospital discharge needs please contact the hospital for assistance. If you have any questions for the [facility] physicians or need to reconsult for clinical or diagnostic changes please contact us via [facility] at . Signature :Garret Muñoz Medical Decision Making 06/20/25 18:26 06/20/25 18:26
[2025-06-20 18:45] LABS: MEAN PLATELET VOLUME 9.1 fL (7.4-11.0); RED CELL DISTRIBUTION WIDTH 18.6 % (11.6-16.5)
--- NOTE | 2025-06-20 18:59 | CT ---
EXAM: BRAIN W/O CON HISTORY: Stroke alert COMPARISON: January 05, 2025 TECHNIQUE: Axial non-contrast images of the head with coronal and sagittal reformats. Radiation dose: 770.14 mGy-cm total DLP FINDINGS: No abnormal areas of acute attenuation in the brain parenchyma. Hancock-white differentiation remains intact. No intracranial, extra-axial, fluid collection. No hemorrhage. No mass, mass effect or midline shift. No ventriculomegaly. No acute fracture. Sinuses are well aerated. Mastoid air cells are well aerated. Globes and intraorbital contents are unremarkable. IMPRESSION: No acute intracranial abnormality identified. THIS IS AN ELECTRONICALLY VERIFIED FINAL REPORT 06/20/2025 6:21 PM - Electronically signed by Bryson Majano MD
--- NOTE | 2025-06-20 18:59 | RAD ---
EXAM: CHEST, 1 VIEW HISTORY: stroke alert; COMPARISON: May 01, 2025 TECHNIQUE: Single frontal view of the chest FINDINGS: There is advanced scoliotic curvature of the spine with rotational position of the chest. A neurostimulator device is in place within the right chest wall with electrodes extending into the right neck. The heart size is normal. No mediastinal widening is observed. There is chronic background coarsening of the interstitial lung markings without consolidation, edema, or pleural effusions. No radiographic evidence of pneumothorax or free air beneath the diaphragm. Bone mineral density is generally diminished. IMPRESSION: Stable chest radiograph without acute abnormalities. Additional chronic findings are detailed above. THIS IS AN ELECTRONICALLY VERIFIED FINAL REPORT 06/20/2025 6:20 PM - Electronically signed by Merrill Vigil MD
[2025-06-20 19:11] LABS: INR 0.96 (0.8-1.3)
[2025-06-20 19:19] LABS: COR NA(FOR HYPERGLY) 144 mmol/L (136-145); CREATININE 0.81 mg/dL (0.55-1.02); eGFR NON BLACK RACES > 60 (>60)
--- NOTE | 2025-06-20 20:00 | DR.CP ---
HPI Time Seen Time Seen by Provider: 06/20/25 17:40 PCP Primary Care Physician: Verona Clarke Complaint Chief Complaint:: Patient ambulated to triage complains of intermittent "feels like a hammer to chest", she states when she lays down occasionally she feels like her heart beats real fast. She complains of occasional nausea, SOB, fatique and diaphoresis all started on Thursday. At this point she had a blank stare, unable to answer questions and became emotional. No obvious other deficit as she moved all extremities. Notified MD and Stroke alert activated. This lasted approximately 4 minutes and patient returned to normal mental status and did not remember this episode. COVID-19 Coronavirus risk:travel/contact w/high risk person: No Has patient experienced Coronavirus symptoms: No Source History Provided: Patient Mode of Arrival Mode of Arrival: Ambulatory Timing Onset of Chief Complaint: 06/16/25 PMH PMH Past Medical History: Yes Past Medical History: Arthritis, CHF, GERD and Hypertension Past Surgical History: Yes Surgical History: and Ortho Surgery Family History History of Family Medical Conditions: Yes Family Medical History: [place], Coronary Artery Disease, Heart Failure, Sudden Cardiac and Hypertension Social History Does patient currently use any type of tobacco product: No Have you used tobacco products in the last 12 months: No Type of Tobacco Use: None Does any household member use tobacco: No Alcohol Use: None Do you use any recreational Drugs:: No Lives With: Spouse Lives Where: Home Travel Risk Coronavirus risk:travel/contact w/high risk person: No Has patient experienced Coronavirus symptoms: No Infectious screening In the last 2 months have you had wt loss of >10#?: NO Have you had fever, night sweats or hemotysis?: No Have you traveled outside the country in the last 6 months?: No Isolation: Standard PE Vitals Vitals: Vital Signs Temperature 98.6 F Pulse Rate 71 Pulse Rate 70 Pulse Rate 70 Pulse Rate 83 Respiratory Rate 16 Respiratory Rate 20 Respiratory Rate 12 Respiratory Rate 16 Blood Pressure 109/57 Blood Pressure 141/68 O2 Sat by Pulse Oximetry 100 O2 Sat by Pulse Oximetry 100 O2 Sat by Pulse Oximetry 100 O2 Sat by Pulse Oximetry 100 ROR Labs Reviewed 06/20/25 18:26 06/20/25 18:55 Laboratory: WBC 7.1 X10^3/uL (3.6-10.0) 06/20/25 18: RBC 4.66 X10^6/uL (3.5-5.4) 06/20/25 18: Hgb 13.3 g/dL (12.0-16.0) 06/20/25 18: Hct 40.3 % (36.0-47.0) 06/20/25 18: MCV 86.6 fL (80.0-100.0) 06/20/25 18: MCH 28.6 pg (27.0-34.0) 06/20/25 18: MCHC 33.0 g/dL (33.0-35.0) 06/20/25 18: RDW 18.6 % (11.6-16.5) H 06/20/25 18: Plt Count 324 X10^3/uL (150.0-450.0) 06/20/25 18: MPV 9.1 fL (7.4-11.0) 06/20/25 18: Neut % (Auto) 60.0 % (42.0-75.0) 06/20/25 18: Lymph % (Auto) 33.4 % (21.0-51.0) 06/20/25 18: [place] % (Auto) 4.0 % (0.0-13.0) 06/20/25 18: Eos % (Auto) 1.8 % (0.9-2.9) 06/20/25 18: Baso % (Auto) 0.8 % (0.2-1.0) 06/20/25 18: Neut # (Auto) 4.3 x10^3/uL (2.2-4.8) 06/20/25 18: Lymph # (Auto) 2.4 X10^3/uL (1.3-2.9) 06/20/25 18: [place] # (Auto) 0.3 x10^3/uL (0.3-0.8) 06/20/25 18: Eos # (Auto) 0.1 x10^3/uL (0.0-0.2) 06/20/25 18: Baso # (Auto) 0.1 X10^3/uL (0.0-0.1) 06/20/25 18:26 Absolute Nucleated RBC 0.2 /100WBC 06/20/25 18:26 PT 12.8 SECONDS (11.8-14.3) 06/20/25 18:55 INR Target Range - 06/20/25 18:55 INR 0.96 (0.8-1.3) 06/20/25 18:55 APTT 27.1 SECONDS (22.9-36.5) 06/20/25 18:55 PTT Comment - 06/20/25 18:55 Fibrinogen 385 mg/dL (239-489) 06/20/25 18:55 Sodium 143 mmol/L (136-145) 06/20/25 18:55 Corrected Sodium 144 mmol/L (136-145) 06/20/25 18:55 Potassium 3.1 mmol/L (3.5-5.1) L 06/20/25 18:55 Chloride 106 mmol/L (98-107) 06/20/25 18:55 Carbon Dioxide 28.8 mmol/L (21-32) 06/20/25 18:55 BUN 5 mg/dL (7-18) L 06/20/25 18:55 Creatinine 0.81 mg/dL (0.55-1.02) 06/20/25 18:55 Est GFR (MDRD) Af Amer > 60 (>60) 06/20/25 18:55 Est GFR (MDRD) Non-Af > 60 (>60) 06/20/25 18:55 Glucose 131 mg/dL (65-99) H 06/20/25 18:55 Calcium 8.9 mg/dL (8.5-10.1) 06/20/25 18:55 Corrected Calcium TNP 06/20/25 18:55 Total Bilirubin 0.30 mg/dL (0.2-1.0) 06/20/25 18:55 AST 18 Units/L (15-37) 06/20/25 18:55 ALT 19 Units/L (12-78) 06/20/25 18:55 Alkaline Phosphatase 101 Units/L (46-116) 06/20/25 18:55 Creatine Kinase 78 Units/L (26-192) 06/20/25 18:55 Troponin I High Sens 5.0 ng/L (4.0-60.0) 06/20/25 18:55 B-Natriuretic Peptide 34.0 pg/mL (0-79) 06/20/25 17:53 Total Protein 7.5 g/dL (6.4-8.2) 06/20/25 18:55 Albumin 3.5 g/dL (3.4-5.0) 06/20/25 18:55 Globulin 4.0 g/dL (2.5-4.5) 06/20/25 18:55 Albumin/Globulin Ratio 0.9 Ratio (1.1-2.1) L 06/20/25 18:55 Opioid Opioid Risk Tool Age (Jose box if 16-45): No History of Preadolescent Sexual Abuse: No Total: 0 Total Score Risk Category: Low Risk Copyright: Baltazar SUMMERS predicting aberrant behaviors Discharge Plan Diagnosis Discharge Problem: Brain TIA, Chest pain Discharge Plan Patient Disposition: 09 ADMITTED INPATIENT Condition: Stable Prescriptions: No Action esomeprazole magnesium 20 mg capsule,delayed release(DR/EC) 20 mg PO BID Qty: 60 0RF montelukast 10 mg tablet 10 mg PO QDAY metronidazole 500 mg tablet 500 mg PO BID Qty: 10 1RF Azo Vaginal Health Probiotic 5 billion cell capsule 1 cap PO .q day Qty: 90 1RF aspirin 81 mg tablet,delayed release (DR/EC) 81 mg PO QDAY doxycycline hyclate 100 mg capsule 100 mg PO BID Qty: 14 0RF Adempas 2.5 mg tablet 2.5 mg PO TID Opsumit 10 mg tablet 10 mg PO QDAY Uptravi 800 mcg tablet 800 mcg PO BID potassium chloride 10 mEq Tablet Extended Release 10 meq PO QDAY allopurinol 100 mg tablet 200 mg PO QDAY trazodone 100 mg tablet 100 mg PO QPM furosemide 20 mg tablet 20 mg PO BID fluticasone propionate 50 mcg/actuation spray,suspension 2 spray INTRANASAL BID levocetirizine 5 mg tablet 5 mg PO QDAY Health Concerns: Post Hospitalization: new medications and changes needed to prevent readmission or further decline. Pt educated and given instructions on all concerns. Plan of Treatment: Continue with present treatment and follow up plan. Pt is to keep follow up appointment as instructed and take medications as ordered. Orders to Discharge Patient Discharge Orders: Transfer (Routine); Ordered 06/20/25 Ordered By: James Gatica Follow ups/Referrals Follow ups/Referrals: Verona Clarke [Primary Care Provider, Unknown] - 3 days Instructions Print Language: VIETNAMESE
[2025-06-20] MEDS: NORCO 5/325 MG TAB PO ONE (20:15)
[2025-06-20] MEDS ORDERED: ULTRAM PO PRN (21:10)
[2025-06-20] MEDS ORDERED: NORCO 5/325 MG TAB PO PRN (21:10)
[2025-06-20] MEDS: FLAGYL TAB 500 MG PO SCH (21:24)
[2025-06-20] MEDS: LASIX PO SCH (21:24)
[2025-06-20 23:16] LABS: BLOOD/HEMOGLOBIN,URINE NEGATIVE (NEGATIVE); LEUKOCYTE ESTERASE ,URINE NEGATIVE (NEGATIVE); NITRITES,URINE NEGATIVE (NEGATIVE)
[2025-06-20 23:25] LABS: APPEARANCE,URINE CLEAR (CLEAR)
[2025-06-20] MEDS: K-DUR TAB 20 MEQ PO SCH (23:37)
[2025-06-21 05:32] LABS: MEAN PLATELET VOLUME 8.2 fL (7.4-11.0); RED CELL DISTRIBUTION WIDTH 16.8 % (11.6-16.5)
[2025-06-21 05:41] LABS: COR CA(FOR HYPOALB) 8.9 mg/dL (8.5-10.1); CREATININE 0.61 mg/dL (0.55-1.02); eGFR NON BLACK RACES > 60 (>60)
[2025-06-21] MEDS: CONSULT PHARMACY - POTASSIUM & MAGNESIUM XX SCH (07:53)
[2025-06-21] MEDS: COLACE CAP 100 MG PO SCH (08:24)
[2025-06-21] MEDS: ASPIRIN EC 81 MG PO SCH (08:24)
[2025-06-21] MEDS: PHARMACY CONSULT XX SCH (08:55)
[2025-06-21 09:20] LABS: CHOL/HDL RATIO 3.1 (0.0-5.0); TSH (3RD GENERATION) 3.216 uIU/mL (0.358-3.74)
[2025-06-21] MEDS: PROTONIX TAB 40 MG PO SCH (09:24)
[2025-06-21] MEDS: FOLIC ACID TAB 1 MG PO SCH (09:24)
[2025-06-21] MEDS: LOVENOX INJ 40 MG SYR SC SCH (10:39)
[2025-06-21] MEDS: TYLENOL 325 MG TAB PO PRN (10:43)
[2025-06-21 11:48] VITALS: PULSE 70
[2025-06-21] MEDS ORDERED: OMNIPAQUE 350 mg/mL 100 mL BTL 100 ML ONE (13:19)
[2025-06-21] MEDS ORDERED: ZOFRAN INJ 4 MG VIAL ONE (14:23)
[2025-06-21] MEDS: ZOFRAN INJ 4 MG VIAL IVP PRN (14:24)
[2025-06-21] MEDS: PATIENT'S HOME MEDICATION PO SCH (14:25)
--- NOTE | 2025-06-21 14:27 | CT ---
EXAM: CAROTID CTA; BRAIN CTA HISTORY: TIA; COMPARISON: No relevant prior studies are available for comparison at the time of interpretation TECHNIQUE: CT images were obtained. Multiplanar reconstructions were created on a separate workstation and used during interpretation. All CT scans at this facility is dose modulation, iterative reconstruction, and/or weight-based dosing as appropriate to reduce radiation to levels as low as reasonably achievable (ALARA). Postprocessing details, radiation dose, and contrast dose (if applicable) are recorded in the patient's medical record. 2 Dimensional reconstructions were performed on the imaging modality. 3 Dimensional reconstructions performed on a separate workstation. Stenosis measurements performed utilizing NASCET criteria. 3-D images reviewed FINDINGS: NECK CTA: Aorta and major branch vessels: No significant aortic abnormality. No significant great vessel stenosis. Right carotid: No hemodynamically significant stenosis. Left carotid: No hemodynamically significant stenosis. Vertebral arteries: Cervical vertebral arteries are widely patent. HEAD CTA-ANTERIOR: No aneurysm Internal carotid arteries: No significant stenosis or abrupt cut off. Anterior cerebral arteries: No significant stenosis or abrupt cut off. Middle cerebral arteries: No significant stenosis or abrupt cut off. HEAD CTA-POSTERIOR: Vertebral arteries: No significant stenosis or abrupt cut off. Vertebrobasilar junction: Normal. No aneurysm. Basilar artery: No significant stenosis or abrupt cut off. Cerebellar arteries: No significant stenosis or abrupt cut off. Posterior cerebral arteries: No significant stenosis or abrupt cut off. Posterior communicating arteries: Neither posterior communicating arteries visualized. These may be developmentally diminutive or absent. Venous dural sinuses: No dural sinus thrombosis identified. NONVASCULAR: No acute cervical soft tissue abnormality. No acute osseous abnormality. Lung apices are clear. No pneumothorax. IMPRESSION: 1. No acute vascular abnormality in the head or neck THIS IS AN ELECTRONICALLY VERIFIED FINAL REPORT 06/21/2025 2:24 PM - Electronically signed by Abelino Garcia MD
[2025-06-21 15:42] VITALS: BP 96/54; RESP 16; TEMP 98.2; O2SAT 96
[2025-06-21] MEDS ORDERED: ELAVIL PO SCH (21:00)
[2025-06-21] MEDS ORDERED: PATIENT'S HOME MEDICATION PO SCH (21:00)
[2025-06-21] MEDS ORDERED: DESYREL PO SCH (21:00)
[2025-06-22] MEDS ORDERED: PATIENT'S HOME MEDICATION PO SCH (09:00)
--- NOTE | 2025-06-23 11:26 | DR.SSS ---
SHORT STAY SUMMARY Admission Date Date of Admission: 06/20/25 Discharge Date Discharge Date: 06/21/25 Admission Diagnoses Admission Diagnoses: TIA URI Hypokalemia Discharge Diagnoses Discharge Diagnoses: TIA Hypokalemia URI Chief Complaint Chief Complaint: URI symptoms, chest pain, weakness History of Present Illness History of Present Illness: Patient is a 65-year-old female with a past medical history of [place], pulmonary hypertension, GERD, CHF, arthritis and insomnia presented with weakness, upper respiratory symptoms and chest pain. She was seen at her PCP office and sent to the ER for evaluation. While patient was in the ER, she had a blank stare which was concerning, stroke code was called. CT brain was negative. Teleneuro consult was done and patient was admitted for further evaluation. She did not have any neurological deficits. Patient does report a prior history of possible CVA years ago, has been seeing neurology. Past Medical History Past Medical History: Arthritis, CHF, GERD and Hypertension Additional Medical History: PULMONARY HYPERTENSION Past Surgical History Surgical History: Ortho Surgery and Other Allergies Allergies Allergy/AdvReac Type Severity Reaction Status Date / Time morphine AdvReac Mild itching Verified 02/15/25 13:25 Medications Home Medications: morphine Adverse Reaction (Mild, Verified 02/15/25 13:25) itching CONTINUE taking the following medications amitriptyline 25 mg tablet 25 mg PO QHS 06/20/25 [History] celecoxib 200 mg capsule 200 mg PO DAILY PRN Pain, Mild 06/20/25 [History] cyclobenzaprine 10 mg tablet 10 mg PO Q8H PRN Muscle Spasm 06/20/25 [History] ergocalciferol (vitamin D2) 1,250 mcg (50,000 unit) capsule (Vitamin D2) 1,250 mcg PO WEEKLY 06/20/25 [History] folic acid 1 mg tablet 1 mg PO QDAY 06/20/25 [History] ibuprofen 800 mg tablet 800 mg PO Q8H PRN 06/20/25 [History] meclizine 25 mg tablet 25 mg PO TID PRN 06/20/25 [History] methocarbamol 500 mg tablet 500 mg PO BID PRN 06/20/25 [History] methotrexate sodium 2.5 mg tablet 20 mg PO QWEEK 06/20/25 [History] pantoprazole 40 mg tablet,delayed release 40 mg PO BID 06/20/25 [History] pantoprazole 40 mg tablet,delayed release 40 mg PO BID 06/20/25 [History] tramadol 50 mg tablet 50 mg PO Q8H PRN 06/20/25 [History] Family History Family Medical History: Hypertension Social History Does patient currently use any type of tobacco product: No Have you used tobacco products in the last 12 months: No Type of Tobacco Use: None Does any household member use tobacco: No Alcohol Use: None Drug Use: None Review of Systems Constitutional: Weakness Eyes: No Symptoms Reported ENT: No Symptoms Reported Respiratory: Cough and Shortness of Breath Cardiovascular: Chest Pain Gastrointestinal: No Symptoms Reported Genitourinary: No Symptoms Reported Musculoskeletal: No Symptoms Reported Skin: No Symptoms Reported Neurological: No Symptoms Reported Physical Exam Vital Signs: Last Vital Signs Temp 98.4 F 06/21/25 11:47 Pulse 70 06/21/25 11:47 Resp 20 06/21/25 11:47 BP 124/68 06/21/25 11:47 Pulse Ox 94 L 06/21/25 11:47 O2 Del Method Room Air 06/21/25 11:47 O2 Flow Rate 2 06/21/25 07:37 FiO2 28 06/20/25 20:47 Oriented: Normal Respiratory: Clear Throughout Cardiovascular: Normal Auscultation: Bowel Sounds: Normal Palpation: Normal Tenderness: Normal Skin: Normal Musculoskeletal: Normal Psychiatric: Normal Mood Description: Calm Affect: Normal Speech Pattern: Clear and Appropriate Labs Labs: Laboratory Last Values WBC 6.3 X10^3/uL (3.6-10.0) 06/21/25 05:15 RBC 4.07 X10^6/uL (3.5-5.4) 06/21/25 05:15 Hgb 11.8 g/dL (12.0-16.0) L 06/21/25 05:15 Hct 35.1 % (36.0-47.0) L 06/21/25 05:15 MCV 86.3 fL (80.0-100.0) 06/21/25 05:15 MCH 29.1 pg (27.0-34.0) 06/21/25 05:15 MCHC 33.7 g/dL (33.0-35.0) 06/21/25 05:15 RDW 16.8 % (11.6-16.5) H 06/21/25 05:15 Plt Count 285 X10^3/uL (150.0-450.0) 06/21/25 05:15 MPV 8.2 fL (7.4-11.0) 06/21/25 05:15 Neut % (Auto) 54.6 % (42.0-75.0) 06/21/25 05:15 Lymph % (Auto) 35.6 % (21.0-51.0) 06/21/25 05:15 [place] % (Auto) 6.9 % (0.0-13.0) 06/21/25 05:15 Eos % (Auto) 2.1 % (0.9-2.9) 06/21/25 05:15 Baso % (Auto) 0.8 % (0.2-1.0) 06/21/25 05:15 Neut # (Auto) 3.4 x10^3/uL (2.2-4.8) 06/21/25 05:15 Lymph # (Auto) 2.2 X10^3/uL (1.3-2.9) 06/21/25 05:15 [place] # (Auto) 0.4 x10^3/uL (0.3-0.8) 06/21/25 05:15 Eos # (Auto) 0.1 x10^3/uL (0.0-0.2) 06/21/25 05:15 Baso # (Auto) 0.1 X10^3/uL (0.0-0.1) 06/21/25 05:15 Absolute Nucleated RBC 0.4 /100WBC 06/21/25 05:15 PT 12.8 SECONDS (11.8-14.3) 06/20/25 18:55 INR Target Range - 06/20/25 18:55 INR 0.96 (0.8-1.3) 06/20/25 18:55 APTT 27.1 SECONDS (22.9-36.5) 06/20/25 18:55 PTT Comment - 06/20/25 18:55 Fibrinogen 385 mg/dL (239-489) 06/20/25 18:55 Sodium 143 mmol/L (136-145) 06/21/25 05:15 Corrected Sodium TNP 06/21/25 05:15 Potassium 3.9 mmol/L (3.5-5.1) 06/21/25 05:15 Chloride 109 mmol/L (98-107) H 06/21/25 05:15 Carbon Dioxide 28.3 mmol/L (21-32) 06/21/25 05:15 BUN 4 mg/dL (7-18) L 06/21/25 05:15 Creatinine 0.61 mg/dL (0.55-1.02) 06/21/25 05:15 Est GFR (MDRD) Af Amer > 60 (>60) 06/21/25 05:15 Est GFR (MDRD) Non-Af > 60 (>60) 06/21/25 05:15 Glucose 98 mg/dL (65-99) 06/21/25 05:15 Hemoglobin A1c 5.9 % 06/21/25 05:15 Calcium 8.2 mg/dL (8.5-10.1) L 06/21/25 05:15 Corrected Calcium 8.9 mg/dL (8.5-10.1) 06/21/25 05:15 Total Bilirubin 0.40 mg/dL (0.2-1.0) 06/21/25 05:15 AST 14 Units/L (15-37) L 06/21/25 05:15 ALT 17 Units/L (12-78) 06/21/25 05:15 Alkaline Phosphatase 85 Units/L (46-116) 06/21/25 05:15 Creatine Kinase 78 Units/L (26-192) 06/20/25 18:55 Troponin I High Sens 5.0 ng/L (4.0-60.0) 06/20/25 18:55 B-Natriuretic Peptide 34.0 pg/mL (0-79) 06/20/25 17:53 Total Protein 6.7 g/dL (6.4-8.2) 06/21/25 05:15 Albumin 3.1 g/dL (3.4-5.0) L 06/21/25 05:15 Globulin 3.6 g/dL (2.5-4.5) 06/21/25 05:15 Albumin/Globulin Ratio 0.9 Ratio (1.1-2.1) L 06/21/25 05:15 Triglycerides 76 mg/dL (0-150) 06/21/25 05:15 Cholesterol 156 mg/dL (0-200) 06/21/25 05:15 LDL Cholesterol, Calc 91 mg/dL (0-100) 06/21/25 05:15 HDL Cholesterol 50 mg/dL (40-60) 06/21/25 05:15 Cholesterol/HDL Ratio 3.1 (0.0-5.0) 06/21/25 05:15 TSH 3rd Generation 3.216 uIU/mL (0.358-3.74) 06/21/25 05:15 Specimen Type Clean catch urine 06/20/25 23:01 Urine Color Straw (YELLOW) 06/20/25 23:01 Urine Appearance Clear (CLEAR) 06/20/25 23:01 Urine pH 7.0 (5.0 - 8.0) 06/20/25 23:01 Ur Specific [place] 1.015 (1.000-1.030) 06/20/25 23:01 Urine Protein Negative (NEGATIVE) 06/20/25 23:01 Urine Glucose (UA) Negative (NEGATIVE) 06/20/25 23:01 Urine Ketones Negative (NEGATIVE) 06/20/25 23:01 Urine Blood Negative (NEGATIVE) 06/20/25 23:01 Urine Nitrite Negative (NEGATIVE) 06/20/25 23:01 Urine Bilirubin Negative (NEGATIVE) 06/20/25 23:01 Urine Urobilinogen Normal (NORMAL) 06/20/25 23:01 Ur Leukocyte Esterase Negative (NEGATIVE) 06/20/25 23:01 SARS-CoV-2 (PCR) Negative (NEGATIVE) 06/21/25 10:32 Influenza Type A (PCR) Negative (NEGATIVE) 06/21/25 10:32 Influenza Type B (PCR) Negative (NEGATIVE) 06/21/25 10:32 RSV (PCR) Negative (NEGATIVE) 06/21/25 10:32 Hospital Course Hospital Course: Patient was admitted on [facility] with telemetry. Her labs are monitored daily and electrolytes replaced as needed. Chest x-ray was negative. COVID/flu/RSV were negative. Cardiac enzymes were negative. CTA head and neck was done which did not show any significant stenosis. MRI brain could not be done as patient has a inspire device which has some restrictions with MRI use. Patient did not have any neurological deficits. She was ambulating with physical therapy. Patient does follow neurology outpatient. She will follow-up with PCP and neurology as scheduled. Patient was stable for discharge. Discharge Medications Discharge Medications: Home Medication List amitriptyline 25 mg tablet 25 mg PO QHS 06/20/25 [History] celecoxib 200 mg capsule 200 mg PO DAILY PRN Pain, Mild 06/20/25 [History] cyclobenzaprine 10 mg tablet 10 mg PO Q8H PRN Muscle Spasm 06/20/25 [History] ergocalciferol (vitamin D2) 1,250 mcg (50,000 unit) capsule (Vitamin D2) 1,250 mcg PO WEEKLY 06/20/25 [History] folic acid 1 mg tablet 1 mg PO QDAY 06/20/25 [History] ibuprofen 800 mg tablet 800 mg PO Q8H PRN 06/20/25 [History] meclizine 25 mg tablet 25 mg PO TID PRN 06/20/25 [History] methocarbamol 500 mg tablet 500 mg PO BID PRN 06/20/25 [History] methotrexate sodium 2.5 mg tablet 20 mg PO QWEEK 06/20/25 [History] pantoprazole 40 mg tablet,delayed release 40 mg PO BID 06/20/25 [History] pantoprazole 40 mg tablet,delayed release 40 mg PO BID 06/20/25 [History] tramadol 50 mg tablet 50 mg PO Q8H PRN 06/20/25 [History] Prescriptions: Discharge Disposition Discharge Disposition: To home Discharge Plan Discharge Plan Patient Disposition: 01 HOME, SELF-CARE Condition: Stable Health Concerns: Post Hospitalization: new medications and changes needed to prevent readmission or further decline. Pt educated and given instructions on all concerns. Care Plan Goals: Problem: Pain/Alteration in Comfort Goal: Improve/ Resolve Pain; Achieve Pain Tolerance Instructions: Take pain medications as prescribed. Contact your primary care provider if your pain is unrelieved or worsens. Follow up with primary care provider as directed. Plan of Treatment: Continue with present treatment and follow up plan. Pt is to keep follow up appointment as instructed and take medications as ordered. Prescription drug monitoring program results: PDMP reviewed and no concerns identified Prescriptions: Continued esomeprazole magnesium 20 mg capsule,delayed release(DR/EC) 20 mg PO BID Qty: 60 0RF montelukast 10 mg tablet 10 mg PO QDAY aspirin 81 mg tablet,delayed release (DR/EC) 81 mg PO QDAY tramadol 50 mg Tablet 50 mg PO Q8H PRN methotrexate sodium 2.5 mg Tablet 20 mg PO QWEEK pantoprazole 40 mg Tablet,Delayed Release (Dr/Ec) 40 mg PO BID meclizine 25 mg Tablet 25 mg PO TID PRN folic acid 1 mg Tablet 1 mg PO QDAY Rx Instructions: Take 1 tablet by mouth once daily except on days methotrexate is taken ibuprofen 800 mg Tablet 800 mg PO Q8H PRN celecoxib 200 mg Capsule 200 mg PO DAILY PRN (Reason: Pain, Mild) methocarbamol 500 mg Tablet 500 mg PO BID PRN cyclobenzaprine 10 mg Tablet 10 mg PO Q8H PRN (Reason: Muscle Spasm) ergocalciferol (vitamin D2) [Vitamin D2] 1,250 mcg (50,000 unit) Capsule 1,250 mcg PO WEEKLY amitriptyline 25 mg Tablet 25 mg PO QHS pantoprazole 40 mg Tablet,Delayed Release (Dr/Ec) 40 mg PO BID Adempas 2.5 mg tablet 2.5 mg PO TID Opsumit 10 mg tablet 10 mg PO QDAY Uptravi 800 mcg tablet 800 mcg PO BID potassium chloride 10 mEq Tablet Extended Release 10 meq PO QDAY allopurinol 100 mg tablet 200 mg PO QDAY trazodone 100 mg tablet 100 mg PO QPM furosemide 20 mg tablet 20 mg PO BID levocetirizine 5 mg tablet 5 mg PO QDAY Orders to Discharge Patient Discharge Orders: Discharge (Routine); Ordered 06/21/25 Ordered By: Amarilis Green Follow ups/Referrals Follow ups/Referrals: Verona Clarke [Primary Care Provider, Unknown] - 06/29/25 1:40 pm Instructions Instructions: Transient Ischemic Attack, [id number], Nonspecific Chest Pain, Adult, [id number] Stand Alone Forms: Find Help Web Site, Post Hospital Follow Up Care Print Language: TANZANIAN
== END 2025-06-21 15:45 | disposition home or self-care (01) ==
LOC: MED/SURG 17:36 → ER 17:36 → MED/SURG 20:44
PROVIDERS: ADMIT Family Medicine; ATTEND Internal Medicine
DX: E87.6 Hypokalemia; I27.20 Pulmonary hypertension, unspecified; Z86.73 Personal history of transient ischemic attack (TIA), and cerebral infarction without residual deficits; Z03.818 Encounter for observation for suspected exposure to other biological agents ruled out; R73.09 Other abnormal glucose; R07.89 Other chest pain; R53.83 Other fatigue; I11.0 Hypertensive heart disease with heart failure; R06.02 Shortness of breath; I50.9 Heart failure, unspecified; J06.9 Acute upper respiratory infection, unspecified; R26.89 Other abnormalities of gait and mobility; I63.89 Other cerebral infarction; K21.9 Gastro-esophageal reflux disease without esophagitis; E83.51 Hypocalcemia; E78.5 Hyperlipidemia, unspecified; G47.33 Obstructive sleep apnea (adult) (pediatric); M19.90 Unspecified osteoarthritis, unspecified site; R29.818 Other symptoms and signs involving the nervous system; R61 Generalized hyperhidrosis